=== PATIENT | male | born 1950 | race Caucasian/White ===

== ENCOUNTER 2020-06-28 20:50 | Inpatient (IN) | payer OTHER, MEDICARE, SELFPAY ==
[2020-06-28 20:51] VITALS: BP 148/80; PULSE 75; RESP 15; TEMP 36.4; O2SAT 95; BMI 30.7
--- NOTE | 2020-06-28 21:04 | EKG12_ITS ---
Test Reason : DYSRHYTHMIA Blood Pressure : / mmHG Vent. Rate : 072 BPM Atrial Rate : 072 BPM P-R Int : 296 ms QRS Dur : 110 ms QT Int : 438 ms P-R-T Axes : -17 -56 037 degrees QTc Int : 479 ms Atrial-paced rhythm with prolonged AV conduction Left axis deviation Low voltage QRS Inferior infarct , age undetermined Anterolateral infarct , age undetermined Abnormal ECG Confirmed by OSCAR CHUN, PETROS ([id number]), department editor JAKE LEYVA ([id number]) on 07/02/2020 8:41:45 AM Referred By: Confirmed By:PETROS MOORE MD
--- NOTE | 2020-06-28 21:05 | ED.VIS.GEN ---
History of Present Illness Chief Complaint: Cellulitis Informant: Patient Onset: Yesterday Context: Sudden Onset Timing: Continuous Quality: Redness left leg with lymphangitis Location: Left leg and foot Current Severity: Moderate Maximum Severity: Moderate Worsened by: Cat bite Relieved by: Nothing Associated Symptoms: Awoke diaphoretic Narrative: Patient is a 69-year-old male who was bit by his cat yesterday. He presents because of redness involving the entire left leg, left foot and red streaks to his groin. Patient denies documented fever. He does report diaphoresis. He does report feeling cold. He denies headache, visual, ocular auditory symptoms. He states he is not on prednisone and is on no immunosuppressive meds. He denies GI symptoms. He denies urologic symptoms. He states he was bit by his cat yesterday. Patient states his immunization and the cats immunizations are up-to-date. He reports no allergy to antibiotics. Prior similar symptoms: Yes Recent Illness/Hospitalization: No - Past Medical History (1) Chronic atrial fibrillation Status: Chronic (2) penitentiary current use of anticoagulant Status: Acute (3) Ischemic cardiomyopathy Status: Acute (4) AICD (automatic cardioverter/defibrillator) present Status: Acute (5) Essential hypertension Status: Acute (6) Hypothyroidism Status: Acute (7) Mixed hyperlipidemia Status: Acute Past Medical History - Allergies and Home Meds Allergies/Adverse Reactions: Allergies bee venom protein (honey bee) Allergy (Verified 06/28/20 20:55) Anaphylaxis perflutren [From Definity] Allergy (Verified 06/28/20 20:56) PT UNSURE OF REACTION Prior records reviewed: No - None available Past Medical History: - - Viewed patient's paperwork from home Surgical History: noncontributory Lives: Alone Smoking Status: Former smoker Alcohol: None Drugs: None Review of Systems General: Reports: Chills, Malaise, Sweats. Denies: Fever, Subjective, Weight loss Eyes: Denies: Visual changes - bilaterally, Blurred Vision - bilaterally ENT: Denies: Rhinorrhea, Sore throat Cardiovascular: Denies: Chest pain, Palpitations Respiratory: Denies: Dyspnea, Cough, Dyspnea on exertion Gastrointestinal: Denies: Abdominal pain, Nausea, Vomiting, Diarrhea, Melena, Hematochezia Genitourinary: Denies: Dysuria, Hematuria, Frequency Musculoskeletal: Reports: Swelling, Extremity Pain. Denies: Myalgias, Arthralgias, Neck pain, Back pain, -, - Skin: Reports: Rash, Wounds Neurological: Denies: Headache, Numbness Hematologic: Reports: Easy bruising. Denies: Easy bleeding Allergy: Denies: Uticaria Physical Exam Vital Signs/Narrative: Vital Signs Temp Pulse Resp BP Pulse Ox 06/28/20 20:51 97.5 F L 75 15 148/80 H 95 General: Well nourished, Well developed, Obese, No Acute Distress Head: Normocephalic, Atraumatic Eyes: Perrl, EOMI. Negative for: Pale conjunctiva, Scleral icterus ENT: No rhinorrhea, TM's clear Neck: Supple, Nontender. Negative for: No lymphadenopathy, No JVD Cardiovascular: Regular rate, No murmurs, Irregular Respiratory: No distress, CTA bilaterally, Chest nontender Abdomen: Soft, Nontender, Nondistended, Normal bowel sounds, - - There is no inguinal lymphadenopathy right or left. Rectal: Deferred Back: Nontender, Normal Inspection Extremities: Tenderness, Edema. Negative for: Nontender, No edema, - - There is a wound distal anterior mid left lower leg above the ankle. There is cellulitis of the entire leg and foot with lymphangitis streaks to the groin. Patient's foot is abnormally shaped and suggestive of Charcot's joint/foot disease Skin: Normal color, Rash, Trauma. Negative for: Cyanosis, Diaphoresis, Jaundice Neurological: Alert, Oriented x3, Cranial nerves II-XII grossly intact, Normal Strength, Normal Sensation, Normal Gait Psychological: Normal affect Diagnostic/Tx/Re-eval Laboratory Results 06/28/20 06/28/20 06/28/20 21:20 21:20 21:20 WBC 9.6 RBC 4.15 L Hgb 12.4 L Hct 38.1 L MCV 91.8 MCH 29.9 MCHC 32.5 RDW Std Deviation 49.0 H RDW Coeff of Ciera 14.6 Plt Count 126 L MPV 13.4 H Immature Gran % (Auto) 0.400 Neut % (Auto) 78.8 H Lymph % (Auto) 12.7 L Bullock % (Auto) 7.7 Eos % (Auto) 0.2 Baso % (Auto) 0.2 Absolute Neuts (auto) 7.5 Absolute Lymphs (auto) 1.22 Nucleated RBC % 0 PT 28.9 H INR 2.8 APTT 51.5 H Sodium 141 Potassium 3.7 Chloride 112 H Carbon Dioxide 25.0 Anion Gap 4 L BUN 27 H Creatinine 1.00 Estim Creat Clear Calc 84.39 Est GFR (MDRD) Af Amer 95 Est GFR (MDRD) Non-Af 79 BUN/Creatinine Ratio 27.1 H Glucose 90 Lactic Acid Calcium 9.0 Total Bilirubin 0.80 AST 17 ALT 32 Alkaline Phosphatase 48 Total Protein 6.9 Albumin 3.5 Globulin 3.4 Albumin/Globulin Ratio 1.0 06/28/20 21:20 WBC RBC Hgb Hct MCV MCH MCHC RDW Std Deviation RDW Coeff of Ciera Plt Count MPV Immature Gran % (Auto) Neut % (Auto) Lymph % (Auto) Bullock % (Auto) Eos % (Auto) Baso % (Auto) Absolute Neuts (auto) Absolute Lymphs (auto) Nucleated RBC % PT INR APTT Sodium Potassium Chloride Carbon Dioxide Anion Gap BUN Creatinine Estim Creat Clear Calc Est GFR (MDRD) Af Amer Est GFR (MDRD) Non-Af BUN/Creatinine Ratio Glucose Lactic Acid 1.5 Calcium Total Bilirubin AST ALT Alkaline Phosphatase Total Protein Albumin Globulin Albumin/Globulin Ratio Patient has no sirs criteria. However he has extensive cellulitis with lymphangitis. Will page the hospitalist for admission. - EKG Initial EKG Interpretation: - - Atrial paced rhythm with prolonged AV conduction. Ventricular rate 72. MA interval 296 ms. QRS duration 110 ms. QT duration 438 ms. [place] is to the left. - Medical Decision Making Patient has cellulitis of the left leg involving the foot with lymphangitis due to cat bite. Sepsis work-up was undertaken. Patient was informed that he would require admission the hospital. He states the last time this occurred he was hospitalized for 4 days. There is no crepitus or pain to palpation to suggest necrotizing fasciitis. ED Disposition - Plan for ED Patient: Disposition: Acute Care Hospital [facility] Diagnosis: Left leg cellulitis, Lymphangitis of lower extremity, Cat bite of left lower leg with infection
[2020-06-28] MEDS: 0.9% Normal Saline 1,000 ML 250 ML IV (21:23)
[2020-06-28 21:53] LABS: Absolute Lymphocyte Count 1.22 X10^3/uL (0.83-4.51); Absolute Neutrophil Count 7.5 X10^3/uL (2.0-7.7); Basophil# 0.02 X10^3/uL; Basophil% 0.2 % (0-1); Eosinophil# 0.02 X10^3/uL; Eosinophils% 0.2 % (0-5); Hematocrit 38.1 % (40-54); Hemoglobin 12.4 g/dL (13.0-16.5); Lymphocyte # 1.22 X10^3/ul (4.0); Lymphocyte % 12.7 % (19-41); Mean Corp Hgb Conc 32.5 g/dL (32-36); Mean Corpuscular Hgb 29.9 pg (27.0-32.0); Mean Corpuscular Volume 91.8 fL (80-94); Mean Platelet Vol. 13.4 fl (6.2-12.0); Monocyte# 0.74 X10^3/uL; Monocyte% 7.7 % (0-10); NRBC Flagged by Analyzer 0 % (0-5); Neutrophil # 7.53 X10^3/uL (2.7-7.7); Neutrophil % 78.8 % (47-70); Platelet Count 126 K/mm3 (150-450); RBC Distribution Width CV 14.6 % (11.6-14.6); Red Blood Count 4.15 M/mm3 (4.6-6.2); White Blood Count 9.6 K/mm3 (4.4-11.0)
[2020-06-28 21:59] LABS: AST(SGOT) 17 U/L (15-37); Alanine Aminotransfer ALT/SGPT 32 U/L (16-61); Albumin, Serum 3.5 g/dL (3.2-5.0); Alkaline Phosphatase 48 U/L (45-117); Anion Gap 4 (5-15); BUN 27 mg/dL (7-18); BUN/Creat Ratio 27.1 RATIO (10-20); Chloride 112 mmol/L (98-107); EST Glomerular Filtration Rate 79 mL/min (>60); Est Glom Filt Rate - Afr Amer 95 mL/min (>60); Estimated Creatinine Clearance 84.39 ml/min; Globulin 3.4 g/dL (2.2-4.2); Glucose 90 mg/dL (74-106); Lactic Acid 1.5 mmol/L (0.4-1.9); Potassium 3.7 mmol/L (3.5-5.1); Protein, Total 6.9 g/dL (6.4-8.2); Sodium Level 141 mmol/L (136-145)
[2020-06-28 22:09] VITALS: BP 129/71; PULSE 70; RESP 18; TEMP 36.4; O2SAT 94
[2020-06-28 22:09] LABS: International Normalized Ratio 2.8; Prothrombin Time (Protime)PT. 28.9 SECONDS (11.7-14.9)
[2020-06-28 22:10] LABS: Partial Thromboplast Time 51.5 Seconds (24.1-36.2)
[2020-06-28 22:29] VITALS: TEMP 36.8
--- NOTE | 2020-06-28 22:31 | HP.PCM_ITS ---
History of Present Illness Date of Admission: 06/28/20 Chief Complaint: cat bite The patient is a 69 year old M with a past medical history as outlined including hypertension, and diabetes. He was admitted through the ED on 06/28/2020 with a complaint of cat bite. He says his cat bit his left leg 2 days prior to admission. He subsequently noted that his leg started getting swollen, red and painful. He had associated increased sweating, but denied any fever, chills, nausea or vomiting, or discharge from his leg. He says this has happened in the past before, when his cat bit his leg. Review of systems was otherwise negative. On adnission in the ED, vitals showed Temp of 98F, with BP of 130/70, WV of 70 a nd RR of 17. CBB showed wbc of 9.6, hb of 12.4, platelets of 126 and BMP showed sodium of 141, potassium of 3.7 and Cr of 1. He is being admitted to be managed for cellulitis of the LLE due to cat bite. [] Past Medical History Past Medical History (Chronic Problems): Chronic Problems Chronic atrial fibrillation (Chronic) Allergies bee venom protein (honey bee) Allergy (Verified 06/28/20 20:55) Anaphylaxis perflutren [From Definity] Allergy (Verified 06/28/20 20:56) PT UNSURE OF REACTION Home Medications: Ambulatory Orders Medication Instructions Recorded Amiodarone HCl 200 mg PO DAILY 06/28/20 Atorvastatin Calcium 20 mg PO DAILY 06/28/20 Carvedilol 25 mg PO BID 06/28/20 Furosemide [Lasix] 40 mg PO QWEEK 06/28/20 Glimepiride 4 mg PO DAILY 06/28/20 Hydralazine HCl 25 mg PO BID 06/28/20 Levothyroxine [Synthroid] 50 mcg PO DAILY 06/28/20 Losartan Potassium 50 mg PO QHS 06/28/20 Metformin HCl 500 mg PO BID 06/28/20 Potassium Chloride [K-Dur] 10 meq PO DAILY 06/28/20 Warfarin [Coumadin ([facility])] 4 mg PO DAILY 06/28/20 Surgical History: noncontributory Psychiatric History: No pertinent psych hx Lives: Alone Smoking Status: Former smoker Alcohol: None Drugs: None - *Family History Maternal History Items: No pertinent history Paternal History Items: No pertinent history Review of Systems Constitutional: Denies: Chills, Fever, Malaise, Weakness, Weight Change, Fatigue Eyes: Denies: Blurred vision HEENT: Denies: Head Aches, Sinus Congestion, Sinus Drainage Cardiovascular: Denies: Chest Pain, Chest Pressure, Chest Tightness, Light Headedness, Palpitations Respiratory: Denies: Cough, Shortness of breath at rest, Shortness of breath upon exertion, Sputum production Gastrointestinal: Denies: Abdominal Pain, Nausea, Vomiting Genitourinary: Denies: Dysuria Musculoskeletal: Reports: Leg Pain. Denies: Joint Tenderness Skin: Reports: Skin Changes, Wounds Neurological: Denies: Numbness, Tingling, Focal weakness Psychiatric: Denies: Anxiety, Depression, Homicidal Ideations, Suicidal Ideations Hematologic/ Lymphatic: Denies: Easy Bruising, Easy Bleeding VTE Information - Inpt Only VTE Present on Admission: No VTE Pharm Prophylaxis ordered?: Yes Patient Problems: Active and Suspected Problems Left leg cellulitis (Acute) Lymphangitis of lower extremity (Acute) Cat bite of left lower leg with infection (Acute) - Physical Exam Vitals/I&O's: Vital Signs Temp Pulse Resp BP Pulse Ox 98.3 F 70 18 129/71 H 94 06/28/20 22:29 06/28/20 22:09 06/28/20 22:09 06/28/20 22:09 06/28/20 22:09 Oxygen Delivery Method Room Air Weight: 252 lb 13.923 oz Body Mass Index (BMI) 30.7 Intake and Output for Last 24 Hours 06/26/20 06/27/20 06/28/20 23:59 23:59 23:59 Intake Total 112 / 112 Balance 112 / 112 General: Alert, Oriented x3, Cooperative, No apparent distress HEENT: Atraumatic, PERRLA, EOMI, Normocephalic Oral: Dry Mucosa Neck: Supple, No JVD, Negative Carotid Bruits Lungs: Clear to auscultation, Normal air movement, No rhonchi, No wheeze Cardiovascular: Regular rate, Regular Rhythm, Normal S1, Normal S2, No murmurs Abdomen: Bowel Sounds Present, Soft, Non Tender, Non-Distended, No Hepato- splenomegaly Extremities: No clubbing, No cyanosis, Capillary Refill Less than 3 Seconds, Edema Skin: - - redness and swelling extending from left ankle to left thigh, with red streaks up thigh; has few blisters on left cramer, with healing cat bite area on left cramer. tender to touch Musculoskeletal: Tenderness, - - as under skin. Lymphatic: No Cervical, Supraclavicular, or Inguinal Adenopathy Neurological: Cranial nerves II-XII grossly intact, Neuro grossly intact, Motor Exam 5/5 strength throughout Psych/Mental Status: Normal Affect, Appropriate, Alert and oriented to time, place, person, mood and affect Laboratory Results 06/28/20 21:20: WBC 9.6, RBC 4.15 L, Hgb 12.4 L, Hct 38.1 L, MCV 91.8, MCH 29.9, MCHC 32.5, RDW Std Deviation 49.0 H, RDW Coeff of Ciera 14.6, Plt Count 126 L, MPV 13.4 H, Immature Gran % (Auto) 0.400, Neut % (Auto) 78.8 H, Lymph % (Auto) 12.7 L, [place] % (Auto) 7.7, Eos % (Auto) 0.2, Baso % (Auto) 0.2, Absolute Neuts (auto) 7.5, Absolute Lymphs (auto) 1.22, Nucleated RBC % 0 06/28/20 21:20: PT 28.9 H, INR 2.8, APTT 51.5 H 06/28/20 21:20: Sodium 141, Potassium 3.7, Chloride 112 H, Carbon Dioxide 25.0, Anion Gap 4 L, BUN 27 H, Creatinine 1.00, Estim Creat Clear Calc 84.39, Est GFR (MDRD) Af Amer 95, Est GFR (MDRD) Non-Af 79, BUN/Creatinine Ratio 27.1 H, Glucose 90, Calcium 9.0, Total Bilirubin 0.80, AST 17, ALT 32, Alkaline Phosphatase 48, Total Protein 6.9, Albumin 3.5, Globulin 3.4, Albumin/Globulin Ratio 1.0 06/28/20 21:20: Lactic Acid 1.5 Current Medications Sodium Chloride () 1,000 mls @ 250 mls/hr IV .Q4H HAL Last Admin: 06/28/20 21:23 Dose: 250 mls/hr Documented by: Assessment/Plan All 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 Afib: on amiodarone and carvedilol. On coumadin. INr is 2.8 3. Hypertension: on hydralazine, loasrtan and carvedilol 4. Type 2 diabetes mellitus: on metformin and glimepiride. ISS. Accuchecks ACHS DVT prophylaxis: on coumadin, Code status: full code * Patient counseled extensively about different types of CODE STATUS including full code, DNR CCA and DNR CCA. Patient elects to be (). Total [id number] time () minutes. Inpatient E&M: 44297 Init Hosp L3 Procedures: 69368 Advncd Care Plan 30 Min
[2020-06-28 22:44] VITALS: BP 130/70; PULSE 70; RESP 17; TEMP 36.6; O2SAT 95
[2020-06-28 23:36] VITALS: BMI 30.7
[2020-06-29] VITALS (8 sets, daily range): BP systolic 106–147; BP diastolic 58–89; PULSE 67–71; RESP 18; TEMP 36.4–37.1; O2SAT 97–98
[2020-06-29] MEDS: Amiodarone 200 MG Tablet PO (00:32)
[2020-06-29] MEDS: hydrALAZINE 25 MG Tablet PO ×3 (00:33→21:34)
[2020-06-29] MEDS: Losartan Potassium 50 MG Tablet PO ×2 (00:34→21:35)
[2020-06-29] MEDS: Carvedilol 25 MG Tablet PO ×3 (00:35→21:35)
[2020-06-29] MEDS: metFORMIN HCl 500 MG Tablet PO ×3 (00:35→17:55)
[2020-06-29] MEDS: Levothyroxine 50 MCG Tablet PO (06:23)
[2020-06-29 06:52] LABS: Absolute Lymphocyte Count 0.77 X10^3/uL (0.83-4.51); Absolute Neutrophil Count 5.7 X10^3/uL (2.0-7.7); Basophil# 0.02 X10^3/uL; Basophil% 0.3 % (0-1); Eosinophil# 0.04 X10^3/uL; Eosinophils% 0.6 % (0-5); Hematocrit 35.6 % (40-54); Hemoglobin 11.2 g/dL (13.0-16.5); Lymphocyte # 0.77 X10^3/ul (4.0); Lymphocyte % 10.7 % (19-41); Mean Corp Hgb Conc 31.5 g/dL (32-36); Mean Corpuscular Hgb 29.5 pg (27.0-32.0); Mean Corpuscular Volume 93.7 fL (80-94); Mean Platelet Vol. 13.3 fl (6.2-12.0); Monocyte# 0.64 X10^3/uL; Monocyte% 8.9 % (0-10); NRBC Flagged by Analyzer 0 % (0-5); Neutrophil # 5.72 X10^3/uL (2.7-7.7); Neutrophil % 79.2 % (47-70); Platelet Count 104 K/mm3 (150-450); RBC Distribution Width CV 14.9 % (11.6-14.6); RBC Distribution Width SD 50.5 fl (35.1-43.9); White Blood Count 7.2 K/mm3 (4.4-11.0)
[2020-06-29 07:04] LABS: Anion Gap 4 (5-15); BUN 19 mg/dL (7-18); BUN/Creat Ratio 27.4 RATIO (10-20); Calcium,Total 8.2 mg/dL (8.5-10.1); Chloride 109 mmol/L (98-107); Creatinine, Serum 0.69 mg/dL (0.70-1.30); EST Glomerular Filtration Rate 120 mL/min (>60); Est Glom Filt Rate - Afr Amer 145 mL/min (>60); Estimated Creatinine Clearance 84.39 ml/min; Glucose 101 mg/dL (74-106); Potassium 3.7 mmol/L (3.5-5.1); Sodium Level 139 mmol/L (136-145)
[2020-06-29 07:11] LABS: Bedside Glucose 121 mg/dL (70-110)
[2020-06-29] MEDS: Glimepiride 4 MG Tablet PO (07:35)
--- NOTE | 2020-06-29 09:41 | PN_ITS ---
Patient Problems: Active and Suspected Problems Left leg cellulitis (Acute) Lymphangitis of lower extremity (Acute) Cat bite of left lower leg with infection (Acute) Reason for Visit: Follow-up for left lower extremity cellulitis after cat bite with lymphangitis. Objective: Patient had cat bite about about 3 days ago. Redness, inflammation and blotching spread to left leg up to inguinal region. No fever or chills. Patient has history of coronary artery status post bypass with saphenous vein graft taken off from left leg. Physical exam General: Alert, Oriented x3, Cooperative HEENT: Atraumatic, PERRLA, EOMI, Normocephalic Oral: No Gingival or Mucosal Lesions/ Ulcerations Neck: Supple, No JVD, Negative Carotid Bruits Lungs: Air entry equal in bilateral lung bases. No crepitation/rhonchi Cardiovascular: Regular rate, Regular Rhythm, Normal S1, Normal S2, No murmurs Abdomen: Bowel Sounds Present, Soft, Non Tender, Non-Distended : No renal angle tenderness. No suprapubic tenderness. Extremities: No edema, Capillary Refill Less than 3 Seconds Skin: Erythema, mild tenderness and swelling of left lower leg and lymphangitic erythema/spread up to left inguinal lymph node. Left inguinal node swollen but not tender, lymphadenopathy Musculoskeletal: No Tenderness to Palpation of Joints or Extremities Neurological: Cranial nerves II-XII grossly intact, Deep Tendon Reflexes 2+/4 and Symmetrical, Neuro grossly intact Psych/Mental Status: Normal Affect, Appropriate. Vitals/I&O's: Vital Signs Temp Pulse Resp BP Pulse Ox 98.6 F 67 18 134/58 H 98 06/29/20 06:00 06/29/20 07:36 06/29/20 06:00 06/29/20 06:00 06/29/20 06:00 Oxygen Delivery Method Room Air Weight: 252 lb 8 oz Body Mass Index (BMI) 30.7 Intake and Output for Last 24 Hours 06/27/20 06/28/20 06/29/20 23:59 23:59 23:59 Intake Total 112 / 112 1108.67 / 1108.67 Balance 112 / 112 1108.67 / 1108.67 Laboratory Results 06/28/20 21:20: WBC 9.6, RBC 4.15 L, Hgb 12.4 L, Hct 38.1 L, MCV 91.8, MCH 29.9, MCHC 32.5, RDW Std Deviation 49.0 H, RDW Coeff of Ciera 14.6, Plt Count 126 L, MPV 13.4 H, Immature Gran % (Auto) 0.400, Neut % (Auto) 78.8 H, Lymph % (Auto) 12.7 L, [place] % (Auto) 7.7, Eos % (Auto) 0.2, Baso % (Auto) 0.2, Absolute Neuts (auto) 7.5, Absolute Lymphs (auto) 1.22, Nucleated RBC % 0 06/28/20 21:20: PT 28.9 H, INR 2.8, APTT 51.5 H 06/28/20 21:20: Sodium 141, Potassium 3.7, Chloride 112 H, Carbon Dioxide 25.0, Anion Gap 4 L, BUN 27 H, Creatinine 1.00, Estim Creat Clear Calc 84.39, Est GFR (MDRD) Af Amer 95, Est GFR (MDRD) Non-Af 79, BUN/Creatinine Ratio 27.1 H, Glucose 90, Calcium 9.0, Total Bilirubin 0.80, AST 17, ALT 32, Alkaline Phosphatase 48, Total Protein 6.9, Albumin 3.5, Globulin 3.4, Albumin/Globulin Ratio 1.0 06/28/20 21:20: Lactic Acid 1.5 06/29/20 06:20: WBC 7.2, RBC 3.80 L, Hgb 11.2 L, Hct 35.6 L, MCV 93.7, MCH 29.5, MCHC 31.5 L, RDW Std Deviation 50.5 H, RDW Coeff of Ciera 14.9 H, Plt Count 104 L, MPV 13.3 H, Immature Gran % (Auto) 0.300, Neut % (Auto) 79.2 H, Lymph % (Auto) 10.7 L, [place] % (Auto) 8.9, Eos % (Auto) 0.6, Baso % (Auto) 0.3, Absolute Neuts (auto) 5.7, Absolute Lymphs (auto) 0.77 L, Nucleated RBC % 0 06/29/20 06:20: Sodium 139, Potassium 3.7, Chloride 109 H, Carbon Dioxide 26.0, Anion Gap 4 L, BUN 19 H, Creatinine 0.69 L, Estim Creat Clear Calc 84.39, Est GFR (MDRD) Af Amer 145, Est GFR (MDRD) Non-Af 120, BUN/Creatinine Ratio 27.4 H, Glucose 101, Calcium 8.2 L 06/29/20 07:02: POC Glucose 121 H Current Medications Acetaminophen (Tylenol) 650 mg PO Q6H PRN PRN PRN Reason: Pain Score 1-10/Temp > 100.7 F Am[facility] Last Admin: 06/29/20 00:32 Dose: 200 mg Documented by: Atorvastatin Calcium (Lipitor) 20 mg PO DAILY@2200 [facility] Carvedilol (Coreg) 25 mg PO BID [facility] Last Admin: 06/29/20 07:36 Dose: 25 mg Documented by: Dextrose (D50w Syringe) 0 gm IV X1 PRN; Protocol PRN Reason: Hypoglycemia Furosemide (Lasix) 40 mg PO QWEEK [facility] Glimepiride (Amaryl) [facility] Last Admin: 06/29/20 07:35 Dose: 4 mg Documented by: Glucagon () 1 mg IM .X1 PRN PRN Reason: Hypoglycemia Hydralazine HCl (Apresoline) 25 mg PO BID [facility] Last Admin: 06/29/20 07:36 Dose: 25 mg Documented by: Ampicillin Sodium/Sulbactam (Sodium 3 gm/ Sodium Chloride) 112 mls @ 150 mls/hr IV Q6 [facility] Last Infusion: 06/29/20 07:29 Dose: Infused Documented by: Sodium Chloride () 250 mls @ 15 mls/hr IV .[id number] PRN PRN Reason: Saline Flush Sodium Chloride () 250 mls @ 15 mls/hr IV .[id number] PRN PRN Reason: Additional IVPB Infusion Insulin Human Lispro (Humalog Kwikpen (Bkc)) 0 unit SC ACHS [facility]; Protocol Last Admin: 06/29/20 07:03 Dose: Not Given Documented by: Levothyroxine Sodium (Synthroid) 50 mcg PO DAILY@0600 [facility] Last Admin: 06/29/20 06:23 Dose: 50 mcg Documented by: Losartan Potassium (Cozaar) 50 mg PO QHS [facility] Last Admin: 06/29/20 00:34 Dose: 50 mg Documented by: Metformin HCl (Glucophage) [facility] Last Admin: 06/29/20 07:35 Dose: 500 mg Documented by: Nitroglycerin (Nitrostat) 0.4 mg SUBLINGUAL Q5M PRN PRN Reason: CARDIAC/CHEST PAIN Ondansetron HCl (Zofran) 4 mg IV Q8H PRN PRN PRN Reason: NAUSEA/VOMITING Oxycodone HCl (Oxyir) 10 mg PO Q4H PRN PRN PRN Reason: Pain Score 4-10/10 Potassium Chloride (K-Dur) 10 meq PO DAILY [facility] Last Admin: 06/29/20 07:36 Dose: 10 meq Documented by: Sodium Chloride () 10 - 40 ml IV UD PRN PRN Reason: SALINE FLUSH Warfarin Sodium (Coumadin (Pbkc)) 4 mg PO DAILY@1700 [facility] Last Admin: 06/29/20 00:34 Dose: 4 mg Documented by: STROKE Vital Signs/Narrative: Vital Signs Temp Pulse Resp BP Pulse Ox 06/29/20 07:36 67 06/29/20 06:00 98.6 F 67 18 134/58 H 98 Medical Necessity - Tobacco Use Smoking Status: Former smoker Assessment/Plan 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 Patient does not meet sepsis criteria or leukocytosis. On IV Unasyn. Supportive management for pain. * 2. Chronic Afib: on amiodarone and carvedilol. On coumadin. INr is 2.8 3. Hypertension: on hydralazine, losartan and carvedilol. Blood pressure is controlled 4. Type 2 diabetes mellitus: on metformin and glimepiride. glucose is 121 in Accu-Chek and BMP and glucose 101. DVT prophylaxis: on coumadin Code status: full code Inpatient E&M: 91616 Subs Hosp L2
[2020-06-29 09:46] LABS: Bacteria 0 SEEN /hpf (None Seen); Mucous, Urine 0 SEEN /hpf (<or=2+); Red Blood Cells-Urine 0 SEEN /hpf (0-5); Squamous Epithelial Cells - UA 0 SEEN /hpf (0-5); White Blood Cells 0 SEEN /hpf (0-5)
[2020-06-29 09:49] LABS: Color, Urine Yellow (Yellow); Glucose, Dipstick Normal (Normal); Ketone-Dipstick 5 mg/dl (Negative); Leukocyte Esterase-Dipstick Negative /ul (Negative); Nitrite-Dipstick Negative (Negative); Occult Blood-Urine Negative /ul (Negative); Protein-Dipstick Negative (Negative); Urine Bilirubin Dipstick Negative (Negative); Urine Clarity Clear (Clear); Urine Urobilinogen 8 mg/dl (Normal)
--- NOTE | 2020-06-29 11:18 | CASEMGMT ---
ENRIKE UREÑA assessment: Face to Face with patient for initial transition planning/care coordination assessment. ENRIKE UREÑA introduced self and role at [facility]. Care providers, pharmacy, and demographics verified. Presentation: Pt presents with LLE cellulitis and red streaking that started wednesday after cat bite Admitting dx: Cellulitis PCP: Krystal Specialists: [facility](unsure of name); Dominique, endocrinology Preferred Pharmacy: [facility] Insurance: [employer] Prescription Benefit: [employer] Living Will/HPOA: Pt states does not have LW/HPOA and declines AD info at this time. LNOK: Kiley Hernandez, Living Arrangements: Pt states lives with in split level home and states no concerns at home at this time. Pt states is independent with ADL's. Transportation: Pt states drives self and states no transportation concerns at this time. DME/HHC: Pt states has a walker, glucometer, and INR meter. Pt states no need for any further DME at this time. Pt states no hx of HHC or SNF in the past. Pt states no concerns with going home at time of discharge. Pt states is retired. Pt states does not smoke cigarettes or drink ETOH. Pt states no further concerns/needs at this time. CM to follow for any further discharge planning/needs. Advised pt to ask for CM if any further questions/concerns/needs arise, voices understanding. Pt Goal: Home Plan: [place] ENRIKE UREÑA
[2020-06-29] MEDS: Insulin Lispro 100 UNIT/ML INSULN.PEN SC (11:27)
[2020-06-29 12:26] LABS: Bedside Glucose 160 mg/dL (70-110)
[2020-06-29 16:26] LABS: Bedside Glucose 106 mg/dL (70-110)
[2020-06-29] MEDS: Atorvastatin Calcium 20 MG Tablet PO (21:35)
[2020-06-29 21:46] LABS: Bedside Glucose 93 mg/dL (70-110)
[2020-06-30 04:10] VITALS: BP 125/71; PULSE 69; RESP 16; TEMP 36.6; O2SAT 97
[2020-06-30] MEDS: Levothyroxine 50 MCG Tablet PO (05:31)
[2020-06-30] MEDS: 0.9% Saline Lock 10 ML Syringe IV ×3 (05:34→21:18)
[2020-06-30 06:26] LABS: International Normalized Ratio 2.4
[2020-06-30 06:55] LABS: Bedside Glucose 104 mg/dL (70-110)
[2020-06-30] MEDS: Glimepiride 4 MG Tablet PO (09:33)
[2020-06-30] MEDS: metFORMIN HCl 500 MG Tablet PO ×2 (09:34→17:40)
[2020-06-30] MEDS: Carvedilol 25 MG Tablet PO ×2 (09:34→21:17)
[2020-06-30 09:35] VITALS: PULSE 80
[2020-06-30] MEDS: hydrALAZINE 25 MG Tablet PO ×2 (09:35→21:17)
[2020-06-30] MEDS: Amiodarone 200 MG Tablet PO (09:35)
[2020-06-30 09:46] VITALS: BP 134/75; PULSE 69; RESP 18; TEMP 36.8; O2SAT 97
[2020-06-30 11:56] LABS: Bedside Glucose 199 mg/dL (70-110)
--- NOTE | 2020-06-30 13:09 | PCM.PN.HOSP ---
Patient Problems: Active and Suspected Problems Left leg cellulitis (Acute) Lymphangitis of lower extremity (Acute) Cat bite of left lower leg with infection (Acute) Reason for Visit: Follow-up left leg cellulitis with lymphangitis. Objective: Patient did not had fever or chills. Extension of cellulitis is improved over left thigh but left leg is still edematous with a small subcutaneous collection on the left lateral aspect. Physical exam General: Alert, Oriented x3, Cooperative HEENT: Atraumatic, PERRLA, EOMI, Normocephalic Oral: No Gingival or Mucosal Lesions/ Ulcerations Neck: Supple, No JVD, Negative Carotid Bruits Lungs: Air entry equal in bilateral lung bases. No crepitation/rhonchi Cardiovascular: Regular rate, Regular Rhythm, Normal S1, Normal S2, No murmurs Abdomen: Bowel Sounds Present, Soft, Non Tender, Non-Distended : No renal angle tenderness. No suprapubic tenderness. Extremities: No edema, Capillary Refill Less than 3 Seconds Skin: Erythema, mild tenderness and swelling of left lower leg. Mild subcutaneous collection, pitting edema over lateral aspect of left leg. Left thigh lymphangitic redness/streak has resolved. Left inguinal node swollen but not tender, lymphadenopathy Musculoskeletal: No Tenderness to Palpation of Joints or Extremities Neurological: Cranial nerves II-XII grossly intact, Deep Tendon Reflexes 2+/4 and Symmetrical, Neuro grossly intact Psych/Mental Status: Normal Affect, Appropriate. Vitals/I&O's: Vital Signs Temp Pulse Resp BP Pulse Ox 98.3 F 69 18 134/75 H 97 06/30/20 09:46 06/30/20 09:46 06/30/20 09:46 06/30/20 09:46 06/30/20 09:46 Oxygen Delivery Method Room Air Weight: 252 lb 8 oz Body Mass Index (BMI) 30.7 Intake and Output for Last 24 Hours 06/28/20 06/29/20 06/30/20 23:59 23:59 23:59 Intake Total 112 / 112 1692.67 / 2042.67 874.25 / 874.25 Balance 112 / 112 1692.67 / 2.67 874.25 / 874.25 Laboratory Results 06/29/20 16:18: POC Glucose 106 06/29/20 21:31: POC Glucose 93 06/30/20 05:15: PT 26.0 H, INR 2.4 06/30/20 06:48: POC Glucose 104 06/30/20 11:48: POC Glucose 199 H Current Medications Acetaminophen (Tylenol) 650 mg PO Q6H PRN PRN PRN Reason: Pain Score 1-10/Temp > 100.7 F [facility] [place] [facility] Admin: 06/30/20 09:35 Dose: 200 mg Documented by: Atorvastatin Calcium (Lipitor) 20 mg PO DAILY@2200 [facility] [place] Last Admin: 06/29/20 21:35 Dose: 20 mg Documented by: Carvedilol (Coreg) 25 mg PO BID [facility] [place] Last Admin: 06/30/20 09:34 Dose: 25 mg Documented by: Dextrose (D50w Syringe) 0 gm IV X1 PRN; Protocol PRN Reason: Hypoglycemia Furosemide (Lasix) 40 mg IV X1 ONE Stop: 06/30/20 13:00 Glimepiride (Amaryl) [facility] [place] [facility] Admin: 06/30/20 09:33 Dose: 4 mg Documented by: Glucagon () 1 mg IM .X1 PRN PRN Reason: Hypoglycemia Hydralazine HCl (Apresoline) 25 mg PO BID [facility] [place] Last Admin: 06/30/20 09:35 Dose: 25 mg Documented by: Ampicillin Sodium/Sulbactam (Sodium 3 gm/ Sodium Chloride) 112 mls @ 150 mls/hr IV Q6 [facility] [place] Last Admin: 06/30/20 12:51 Dose: 100 mls/hr Documented by: Sodium Chloride () 250 mls @ 15 mls/hr IV .[id number] PRN PRN Reason: Saline Flush Last Infusion: 06/30/20 05:32 Dose: 0 mls/hr Documented by: Sodium Chloride () 250 mls @ 15 mls/hr IV .[id number] PRN PRN Reason: Additional IVPB Infusion Insulin Human Lispro (Humalog Kwikpen (Bkc)) 0 unit SC ACHS [facility] [place]; Protocol Last Admin: 06/30/20 07:37 Dose: Not Given Documented by: Levothyroxine Sodium (Synthroid) 50 mcg PO DAILY@0600 [facility] [place] Last Admin: 06/30/20 05:31 Dose: 50 mcg Documented by: Losartan Potassium (Cozaar) 50 mg PO QHS [facility] [place] Last Admin: 06/29/20 21:35 Dose: 50 mg Documented by: Metformin HCl (Glucophage) 500 mg PO BIDCM [facility] [place] Last Admin: 06/30/20 09:34 Dose: 500 mg Documented by: Nitroglycerin (Nitrostat) 0.4 mg SUBLINGUAL Q5M PRN PRN Reason: CARDIAC/CHEST PAIN Ondansetron HCl (Zofran) 4 mg IV Q8H PRN PRN PRN Reason: NAUSEA/VOMITING Oxycodone HCl (Oxyir) 10 mg PO Q4H PRN PRN PRN Reason: Pain Score 4-10/10 Potassium Chloride (K-Dur) 10 meq PO DAILY [facility] [place] Last Admin: 06/30/20 09:35 Dose: 10 meq Documented by: Sodium Chloride () 10 - 40 ml IV UD PRN PRN Reason: SALINE FLUSH Last Admin: 06/30/20 05:34 Dose: 10 ml Documented by: Warfarin Sodium (Coumadin (Pbkc)) 4 mg PO DAILY@1700 [facility] [place] Last Admin: 06/29/20 17:54 Dose: 4 mg Documented by: STROKE Vital Signs/Narrative: Vital Signs Temp Pulse Resp BP Pulse Ox 06/30/20 09:46 98.3 F 69 18 134/75 H 97 06/30/20 09:35 80 Medical Necessity - Tobacco Use Smoking Status: Former smoker Assessment/Plan All Active Problems jail current use of anticoagulant (Acute) Ischemic cardiomyopathy (Acute) AICD (automatic cardioverter/defibrillator) present (Acute) Essential hypertension (Acute) Hypothyroidism (Acute) Mixed hyperlipidemia (Acute) Left leg cellulitis (Acute) Lymphangitis of lower extremity (Acute) Cat bite of left lower leg with infection (Acute) 69 y/o admitted with a complaint of redness and swelling of left leg due to cat bite along with lymphangitis consistent with left lower extremity cellulitis 1.Left lower extremity cellulitis and lymphangitis due to cat bite most likely strep: Patient is being admitted on MedSurg. Patient does not meet sepsis criteria or leukocytosis. On IV Unasyn. Supportive management for pain. 06/30: Subcutaneous collection of fluid on the left lateral aspect. I feel, does not need incision and drainage but most likely will reabsorb with conservative antibiotic treatment. CBC and BMP ordered for tomorrow a.m. 2.Chronic heart failure: Exact severity and type of heart failure unclear but patient has coronary artery disease status post bypass with saphenous vein graft taken from left leg. Patient also takes Lasix 40 mg weekly for history of heart failure but tries to not to take in summer to avoid dehydration and is a avid golfer. Lasix 1 dose 40 mg IV ordered. Reevaluate tomorrow a.m. if patient still has swelling, Lasix as needed. 3. Chronic Afib: on amiodarone and carvedilol. On coumadin. INr is 2.8 4.. Hypertension: on hydralazine, losartan and carvedilol. Blood pressure is controlled 4. Type 2 diabetes mellitus: on metformin and glimepiride. glucose is 121 in Accu-Chek and BMP and glucose 101. DVT prophylaxis: on coumadin. INR supratherapeutic Code status: full code Anticipate discharge tomorrow a.m. if left leg swelling has improved. Inpatient E&M: 74365 Subs Hosp L2
[2020-06-30] MEDS: Insulin Lispro 100 UNIT/ML INSULN.PEN SC (13:20)
[2020-06-30] MEDS: Furosemide 40 MG/4 ML Vial IV (13:21)
[2020-06-30 13:54] VITALS: BP 156/84; PULSE 71; PULSE 77; RESP 16; TEMP 37.1; O2SAT 100
[2020-06-30 16:26] LABS: Bedside Glucose 82 mg/dL (70-110)
--- NOTE | 2020-06-30 18:03 | NURSING ---
@ 1700 dose time, 4 mg missing from med drawer-Rx notified
[2020-06-30 21:17] VITALS: BP 128/69; PULSE 72; RESP 16; TEMP 36.6; O2SAT 97
[2020-06-30] MEDS: Losartan Potassium 50 MG Tablet PO (21:17)
[2020-06-30] MEDS: Atorvastatin Calcium 20 MG Tablet PO (21:17)
[2020-06-30 21:26] LABS: Bedside Glucose 89 mg/dL (70-110)
[2020-07-01 04:45] VITALS: BP 108/58; PULSE 73; RESP 16; TEMP 36.6; O2SAT 98
[2020-07-01] MEDS: 0.9% Saline Lock 10 ML Syringe IV (05:33)
[2020-07-01] MEDS: Furosemide 40 MG/4 ML Vial IV (05:34)
[2020-07-01] MEDS: Levothyroxine 50 MCG Tablet PO (05:40)
[2020-07-01 06:32] LABS: Absolute Lymphocyte Count 1.23 X10^3/uL (0.83-4.51); Basophil# 0.02 X10^3/uL; Basophil% 0.3 % (0-1); Eosinophil# 0.08 X10^3/uL; Eosinophils% 1.2 % (0-5); Hematocrit 41.4 % (40-54); Hemoglobin 13.3 g/dL (13.0-16.5); Lymphocyte # 1.23 X10^3/ul (4.0); Lymphocyte % 17.9 % (19-41); Mean Corp Hgb Conc 32.1 g/dL (32-36); Mean Corpuscular Hgb 29.5 pg (27.0-32.0); Mean Corpuscular Volume 91.8 fL (80-94); Mean Platelet Vol. 12.6 fl (6.2-12.0); Monocyte% 7.3 % (0-10); NRBC Flagged by Analyzer 0 % (0-5); Neutrophil # 5.01 X10^3/uL (2.7-7.7); Neutrophil % 72.9 % (47-70); Platelet Count 171 K/mm3 (150-450); RBC Distribution Width CV 14.5 % (11.6-14.6); Red Blood Count 4.51 M/mm3 (4.6-6.2); White Blood Count 6.9 K/mm3 (4.4-11.0)
[2020-07-01] MEDS: Insulin Lispro 100 UNIT/ML INSULN.PEN SC (06:40)
[2020-07-01 06:47] LABS: International Normalized Ratio 2.2
[2020-07-01 06:50] LABS: Bedside Glucose 154 mg/dL (70-110)
[2020-07-01 06:55] LABS: Anion Gap 6 (5-15); BUN 18 mg/dL (7-18); BUN/Creat Ratio 22.1 RATIO (10-20); Chloride 107 mmol/L (98-107); Creatinine, Serum 0.82 mg/dL (0.70-1.30); EST Glomerular Filtration Rate 99 mL/min (>60); Est Glom Filt Rate - Afr Amer 120 mL/min (>60); Estimated Creatinine Clearance 102.91 ml/min; Glucose 133 mg/dL (74-106); Potassium 3.9 mmol/L (3.5-5.1); Sodium Level 141 mmol/L (136-145)
--- NOTE | 2020-07-01 08:00 | NURSING ---
Was asked to see patient for redness to the left leg d/t cat bite. pt is currently sitting up in the chair eating breakfast. quickly assessed the left leg. the redness is much improved according to the skin markings. pt has not redness to the left thigh at this time. pt states he had been bitten to the left medial lower cramer. small scabbed laceration noted. no fluctuance noted. patient states there is minimal discomfort, just some burning and irritation when anything rubs on the leg. pt states he does not want to try an [place] wrap at this time. pt states even just the sock bothers me. there is discoloration from the knee to ankle. pt states some is chronic. mild edema noted. pt feel has improved greatly. no need for wound care at this time. will monitor.
--- NOTE | 2020-07-01 08:30 | DCINST_ITS ---
- Discharge Diagnoses Current Active Problems: Current Active and Chronic Problems Left leg cellulitis (Acute) Lymphangitis of lower extremity (Acute) Cat bite of left lower leg with infection (Acute) You will use the following diet at home:: Calorie/Carbohydrate Controlled (specify 1200, 1400, etc) - 2000 tabatha., Cardiac Your food should be the consistency of: Regular Discharge Activity: Return to Normal Activity Weight Bearing Status: Weight bearing as tolerated Call your doctor if you observe: Fever of 101 or Higher, Shortness of breath, Dizziness, Fainting spells, Chest pain, Increased palpitations (irregular heartbeat), Uncontrolled pain Allergies/Adverse Reactions: Allergies bee venom protein (honey bee) Allergy (Verified 06/28/20 20:55) Anaphylaxis perflutren [From Definity] Allergy (Verified 06/28/20 20:56) PT UNSURE OF REACTION Medications to take at Discharge Amiodarone HCl 200 mg PO DAILY 06/28/20 Atorvastatin Calcium 20 mg PO DAILY 06/28/20 Carvedilol 25 mg PO BID 06/28/20 Furosemide [Lasix] 40 mg PO TU 06/28/20 Glimepiride 4 mg PO DAILY 06/28/20 Hydralazine HCl 25 mg PO BID 06/28/20 Levothyroxine [Synthroid] 50 mcg PO DAILY 06/28/20 Losartan Potassium 50 mg PO QHS 06/28/20 Metformin HCl 500 mg PO BID 06/28/20 Potassium Chloride [K-Dur] 10 meq PO DAILY 06/28/20 Warfarin [Coumadin] 4 mg PO DAILY 06/28/20 Amox/Clavulanate Tablet [Augmentin Tablet] 875 mg PO Q12H #10 tab 07/01/20 The following prescriptions were given: Amox/Clavulanate Tablet [Augmentin Tablet] 875 mg PO Q12H #10 tab Transmission Status: [id number] Primary Care Physician: Alfredito Rice MD [Primary Care Provider] - Please follow up with your Primary Care Physician in: 1 week. Test Results: Test results from this visit will be discussed in further detail at your follow- up appointment, if applicable.
[2020-07-01 08:36] VITALS: PULSE 70
[2020-07-01] MEDS: hydrALAZINE 25 MG Tablet PO (08:36)
[2020-07-01] MEDS: Glimepiride 4 MG Tablet PO (08:36)
[2020-07-01] MEDS: Amiodarone 200 MG Tablet PO (08:36)
[2020-07-01] MEDS: Carvedilol 25 MG Tablet PO (08:36)
[2020-07-01] MEDS: metFORMIN HCl 500 MG Tablet PO (08:38)
[2020-07-01 08:40] VITALS: BP 140/85; PULSE 70; RESP 18; TEMP 36.8; O2SAT 98
--- NOTE | 2020-07-01 11:02 | PCM.DC.SUM ---
Discharge Date and Diagnosis Date of Admission: 06/28/20 Date of Discharge: 07/01/20 - Primary Discharge Diagnosis Acute Problems: Acute left lower extremity cellulitis. 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 Swelling and erythema of the left lower leg improved. He has no fever or chills. His vital signs are stable. The patient is a 69 year old M presented to the emergency room because of left leg increasing redness and swelling due to cat bite and he was found to have acute cellulitis of the left lower extremity involving left lower leg. There was no evidence of sepsis or severe sepsis. His routine blood work was unremarkable. Lactic acid was normal. Patient was treated with IV Unasyn. Blood culture sent and showed no growth in 48 hours. Patient remained afebrile throughout the hospital stay. His other vital signs were stable throughout the hospital stay. Swelling and erythema of the left lower leg significantly improved. Patient discharged home in a stable medical condition, discharged on Augmentin 875 mg p.o. twice daily for 5 days more of treatment to complete total of 8 days of treatment, continued on his previous home medications without any changes including Coumadin, INR upon discharge was 2.2, recommended follow-up with PCP in 1 week. - Physical Exam Vitals/I&O's: Vital Signs Temp Pulse Resp BP Pulse Ox 98.2 F 70 18 140/85 H 98 07/01/20 08:40 07/01/20 08:40 07/01/20 08:40 07/01/20 08:40 07/01/20 08:40 Oxygen Delivery Method Room Air Weight: 252 lb 8 oz Body Mass Index (BMI) 30.7 Intake and Output for Last 24 Hours 06/29/20 06/30/20 07/01/20 23:59 23:59 23:59 Intake Total 1692.67 / 2042.67 1748.25 / 2048.25 674 / 674 Output Total 1200 / 2100 1600 / 1600 Balance 1692.67 / 2042.67 548.25 / -51.75 -926 / -926 General: Alert, Oriented x3, Cooperative, No apparent distress HEENT: Atraumatic, PERRLA, EOMI, Normocephalic Oral: Moist Mucosa, No Gingival or Mucosal Lesions/ Ulcerations Neck: Supple, No JVD, Negative Carotid Bruits, Trachea Midline, Thyroid Normal Size and Texture Lungs: Clear to auscultation, Normal air movement, No rhonchi, No wheeze, No rales, Diminished Cardiovascular: Regular rate, Regular Rhythm, Normal S1, Normal S2, PMI Normal Abdomen: Bowel Sounds Present, Soft, Non Tender, Non-Distended, No Hepato-splenomegaly Extremities: No clubbing, No cyanosis, Edema - Trace edema., - - Left leg: Erythema and swelling improved, no open wounds or drainage. Skin: No rashes, No breakdown Lymphatic: No Cervical, Supraclavicular, or Inguinal Adenopathy Neurological: Cranial nerves II-XII grossly intact, Neuro grossly intact Psych/Mental Status: Normal Affect, Appropriate Microbiology Past 72 Hours 06/28/20 21:20 Blood Culture (Wb) - Right Hand Blood Culture - Preliminary No growth in 48 hours. 06/28/20 21:20 Blood Culture (Wb) - Anticubital Left Blood Culture - Preliminary No growth in 48 hours. Laboratory Results 06/30/20 11:48: POC Glucose 199 H 06/30/20 16:16: POC Glucose 82 06/30/20 21:14: POC Glucose 89 07/01/20 06:20: PT 24.0 H, INR 2.2 07/01/20 06:20: WBC 6.9, RBC 4.51 L, Hgb 13.3, Hct 41.4, MCV 91.8, MCH 29.5, MCHC 32.1, RDW Std Deviation 49.0 H, RDW Coeff of [place]iera 14.5, Plt Count 171, MPV 12.6 H, Immature Gran % (Auto) 0.400, Neut % (Auto) 72.9 H, Lymph % (Auto) 17.9 L, [place] % (Auto) 7.3, Eos % (Auto) 1.2, Baso % (Auto) 0.3, Absolute Neuts (auto) 5.0, Absolute Lymphs (auto) 1.23, Nucleated RBC % 0 07/01/20 06:20: Sodium 141, Potassium 3.9, Chloride 107, Carbon Dioxide 28.0, Anion Gap 6, BUN 18, Creatinine 0.82, Estim Creat Clear Calc 102.91, Est GFR (MDRD) Af Amer 120, Est GFR (MDRD) Non-Af 99, BUN/Creatinine Ratio 22.1 H, Glucose 133 H, Calcium 9.0 07/01/20 06:38: POC Glucose 154 H Discharge Activity: Return to Normal Activity Weight Bearing Status: Weight bearing as tolerated Call your doctor if you observe: Fever of 101 or Higher, Shortness of breath, Dizziness, Fainting spells, Chest pain, Increased palpitations (irregular heartbeat), Uncontrolled pain Home Medications: Medications to take at Discharge Amiodarone HCl 200 mg PO DAILY 06/28/20 Atorvastatin Calcium 20 mg PO DAILY 06/28/20 Carvedilol 25 mg PO BID 06/28/20 Furosemide [Lasix] 40 mg PO TU 06/28/20 Glimepiride 4 mg PO DAILY 06/28/20 Hydralazine HCl 25 mg PO BID 06/28/20 Levothyroxine [Synthroid] 50 mcg PO DAILY 06/28/20 Losartan Potassium 50 mg PO QHS 06/28/20 Metformin HCl 500 mg PO BID 06/28/20 Potassium Chloride [K-Dur] 10 meq PO DAILY 06/28/20 Warfarin [Coumadin] 4 mg PO DAILY 06/28/20 Amox/Clavulanate Tablet [Augmentin Tablet] 875 mg PO Q12H #10 tab 07/01/20 Following Prescriptions Were Given to Patient: Amox/Clavulanate Tablet [Augmentin Tablet] 875 mg PO Q12H #10 tab [facility]: [facility] [address] [facility] Primary Care Physician: Alfredito Rice MD [Primary Care Provider] - Please follow up with your Primary Care Physician in: 1 week. Disposition: Home Minutes spent on discharge:: 27 Patient Condition:: Stable Medical Necessity - Tobacco Use Smoking Status: Former smoker Meaningful Use Info Meaningful Use Diagnoses (Choose all that apply): None applicable Inpatient E&M: 32485 Disch Hosp
== END 2020-07-01 09:35 | disposition home or self-care (01) | DRG 603 ==
LOC: ED 21:36 → MS3 22:50
PROVIDERS: Internal Medicine; Admitting Provider Student in an Organized Health Care Education/Training Program; Emergency Provider Emergency Medicine; PCP Family Medicine Geriatric Medicine; Visit Provider Hospitalist
DX: L03.116 Cellulitis of left lower limb (principal); I48.20 Chronic atrial fibrillation, unspecified; E11.9 Type 2 diabetes mellitus without complications; I25.10 Atherosclerotic heart disease of native coronary artery without angina pectoris; I11.0 Hypertensive heart disease with heart failure; I50.9 Heart failure, unspecified; Z66 Do not resuscitate; W55.01XA Bitten by cat, initial encounter; Z79.84 Long term (current) use of oral hypoglycemic drugs; Z79.01 Long term (current) use of anticoagulants; Z79.890 Hormone replacement therapy; Z87.891 Personal history of nicotine dependence; Z95.1 Presence of aortocoronary bypass graft; Z95.810 Presence of automatic (implantable) cardiac defibrillator; E03.9 Hypothyroidism, unspecified; E78.2 Mixed hyperlipidemia; I25.5 Ischemic cardiomyopathy
CPT/HCPCS: 36415; 80048; 80053; 81001; 82962; 83605; 85025; 85610; 85730; 87040; 93005; 99285; J7030; J7050; A4216; J0295; J1940

== ENCOUNTER → 2021-11-12 13:20 | Outpatient (CLI) | payer OTHER, SELFPAY ==
--- NOTE | 2021-11-12 13:29 | PCM.CR.ITP ---
Diagnosis - General Information Admitting Diagnosis: NSTEMI, history of previous CABG w/5 vessel bypass graft. Personal Learning Style:: Audio/Visual, Written Barriers to Learning: Vision Impairment Stage of change r/t lifestyle modifications:: Action Gave educational material for:: Treating Heart Disease, Emotions & Heart Disease, Stress Management & Relaxation, Sleep Disorders & Heart Disease, How The Heart Works, What it means to have Heart Disease, How Coronary Artery Disease is Diagnosed, Heart Procedures, What Heart Medications Do, Risk Factors & Modifications, Living an Active Life, Nutrition - Education/Goals Individual Counseling: Initial Assessment: Abnormal Cholesterol Levels, High Blood Pressure, Overweight/Obesity Cardiac Rehabilitation Goals: 1. Maintain the individual as the primary focus of care. 2. To improve the patient's quality of life. 3. Identification of cardiac risk factors and provide cardiac risk factor management. 4. Enhance the psychosocial status of the patient. 5. Reconditioning enough to allow the patient to resume customary activities. 6. Control symptoms of cardiac disease Personal Goals: Initial Assessment: Improve energy level, Participate in home exercise program, Improve knowledge of cardiac disease, Improve muscle strength and endurance, Improve diet and eating habits (eat healthier), Control risk factors (learn risk factor modification) Scale for measuring improvement of personal goals: Enter appropriate number in Comments. 2 = Unchanged. 3 = Slightly Better. 4 = Moderate Improvement. 5 = Met my Goal - Diagnosis & Disease Process Outcomes/Goals: Pt IDs own risk factors & lifestyle modifications by Session 10, Verbalizes symptoms of angina & response by session 3., Pt independently manages Plan/Interventions: Assist Pt to ID & engage in lifestyle modification to reduce CVD risk, Instruct on individual risk factors, Review symptoms of angina & emergency actions, Review secondary diagnosis & identify educational needs. - Safety Referral to Physical Therapy: No Referral to [facility] Case Management: No Fall Risk Assessed:: Yes Assistive Devices:: None Exercise - Initial Assessment - Visit Date of Eval: 11/12/21 Session #:: 0 - Pre-cardaic Rehab assessment Mets: Pre-: >7 METS for 30 minutes by discharge - Physician Prescribed Exercise Modalities: Treadmill, Rower, Airdyne, NuStep Frequency: 3x/week for 12 weeks [36 sessions] Intensity: 60-80% of age predicted maximum heart rate reserve Current METSs:: 3.0 Target Heart Rate:: 97-126 Resting Blood Pressure: 112/72 EKG Type: Sinus Rhythm w/first degree AV block - Outcomes & Goals Goals:: Verbalizes understanding of THR, RPE & goal METS by session 6, Documents in home exercise log/reports 30 min aerobic 5 day/wk by DC, Demonstrates accurate pulse taking by DC - Intervention & Plan Exercise Program Goals: Instruct on personal THR & RPE, Instruct on MET level & personal MET goal, Show patient to take own pulse /validate performance until accurate, Instruct on home exercise - Physical Activity Home Exercise Physical Activity - Home Exercise: Safe Exercise, Warm-up, Self-monitoring, Cool-Down, Home Exercise > 30 min Daily, Sitting Time <3 hours/daily - Outcomes & Goals Outcomes/Goals: Demonstrates correct Warm-up/exercise Cool-Down (S3) if = 2.5 METs, Verbalizes symptoms of exercise intolerance by Session 3 (S3), Demonstrate safe equipment use (S3) & follows exercise prescrition (6) - Intervention & Plan Plan/Intervention: Instruct warm-up & cool-down if exercising at > 2 METs, Instruct on symptoms of exercise intolerance & actions to take, Instruct & monitor on saf, Assess intial functional capacity & safety risk Nutrition - Initial Assessment - Program Goals Nutrition Program Goals: LDL <100 optimal. 100 - 129 Near optimal. 130 - 159 Borderline High. 160 - 189 High. Total Cholesterol <200 desirable. 200 - 239 Borderline High. >/= 240 High. HDL < 40 Low >/=60 High. Triglycerides <150 desirable. <199 optimal. VlDL 5 - 40. HgbA1C <7%. BMI <25 Patient has diagnosis of Hyperlipidemia (ICD E78)?: Yes - Visit Date of Assessment:: 11/12/21 Session #:: 0 - pre-cardiac rehab assessment - Cholesterol/Lipids Triglycerides (mg/dL): 100 - 08/14/2021 Total Cholesterol (mg/dL): 126 LDL Cholesterol (mg/dL): 62 HDL Cholesterol (mg/dL): 44 Determine presence & major risk factors that modify LDL goal: Hypertension or hypertensive medication, Family history of premature CHD in Male < 55 years: female <65 yearsFa, Age men > 45 years; women >/= 55 years Outcomes/Goals: Pt IDs own risk factors & lifestyle modifications by Session 10, Verbalizes symptoms of angina & response by session 3., Pt independently manages Intervention/Plan: Instruct on personal lipid levels & lipid goals/NCEP guidelines, Instruct on cholesterol - Diabetes (Other Core Measures) Diabetes Type: 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 E11 Fasting blood glucose:: 142 Hgb A1C (4.2 - 6.3): 6.6 Insulin dependent injection/pump?: No Non-Insulin Dependent?: Yes - Glucophage Do you monitor your blood sugar at home?: Yes Referral to Diabetic Clinic:: Yes Outcomes/Goals:: Able to state symptoms of, Able to state, Able to state Intervention/Plan:: Instruct on, Refer to, Instruct on - Weight Mgt (Other Care) Not Applicable: No Height: 6 ft 4 in Weight:: 250 lb 1.76 oz BMI: 30.4 Diagnosis Overweight/Obesity BMI> 30% ICD-10 E66: Yes Diagnosis High BMI/Morbid Obesity BMI> 35% ICD-10 Z68: No Outcomes/Goals: Pt sets, maintains & shows weight loss goal & trend during rehab Intervention/Plan: Instruct on ideal BMI & set weight loss goal w/patient, Assist pt to ID & incorporate diet changes for weight loss by S9, Refer to Structured Weight Loss program as appropriate, Encourage goal of using 250-300dcal per session for weight loss - Healthy Eating Habits Will attend diet classes:: Yes Outcomes/Goals:: Consume diet rich in vegs,fruits,whole grain/high fiber,fish,lean meat, Limit sat/trans fats,cholesterol & added salts & sugars Intervention/Plan:: Assess current eating habits - Education Gave educational materials for:: Signs & symptoms of hypoglycemia, Signs & symptoms of hyperglycemia, Relate diabetes to coronary artery disease, Healthy eating Nutrition - 30-Day Assessment Nutrition - 60-Day Assessment Nutrition - 90-Day Assessment Nutrition - Final Assessment Medical - Initial Assessment - Visit Date of Eval: 11/12/21 Session #:: 0 - pre-cardiac rehab assessment - Medication Compliance Preventative Medication(s):: Aspirin, Clopidogrel/P2Y12 inhibit, Statin/lipid, Beta jaylen, Warfarin/Coumadin H/O mental health issues: depression, anxiety, or addiction?: No Doesn?t believe in the benefits of treatment?: No Believes medications are unnecessary or harmful?: No Has a concern about medication side effects?: No Expresses concern over the cost of medications?: No Outcomes/Goals: Verbalizes medications,desired effect & common side effects @ DC, Pt self-reports following medication regimen, Keeps card in wallet w/medications listed by DC Interventions/plans: Instruct on medication effects & side effects, Review medication list w/patient every two weeks, Instruct importance of taking meds as ordered & assist problem solving - Tobacco Use Tobacco Use: Non-smoker - Hypertension Hypertension Diagnosis:: Hypertension ICD-10 I10 Resting Blood Pressure:: 112/72 [place] [employer] Hypertension Guidelines: [place] [employer] Hypertension Guidelines. Normal BP Less than 120/80. Elevated BP 120/80. Hypertension Stage 1: BP 130-139/80-89. Hypertesnion Stage 2: BP 140 or higher/90 or higher. Hypertension Crisis: BP higher than 180/120 Outcomes/Goals: Able to verbalize/achieve optimal blood pressure <130/80, Incorporates diet changes & exercise for blood pressure control by DC Interventions/plan: Instruct on optimal blood pressure, hypertension & medications, Instruct on effects of sodium, alcohol, stress, exercise &hypertension - Tobacco Cessation Referral Smoking Cessation Referral:: No Individual Education/Counseling:: No Education Schedule Given:: Yes - Online resources and printed education manual provided to patient Medical- 30-Day Assessment Medical- 60-Day Assessment Medical- 90-Day Assessment Medical - Final Assessment Psychosocial - Initial Assess - VIsit Date of Eval: 11/12/21 Session #:: 0 - pre-cardiac rehab assessment Not Applicable: Yes History of previous Mental disease:: No - Psychosocial Test Tool Used:: [employer] StormPins QOL Cardiac, PHQ-9 Questionnaire phq-9 Severity: Severity. 1-4 Minimal Depression. 5-9 Mild Depression. 10-14 Moderate Depression. 15-19 Moderately Sever Depression. 20-27 Severe Depression. Rule: - Referral to Behavioral Health PS - Interventions: Yes Attend Stress Management Classes, No Referral to Behavioral Health if PHQ-9 score >9:, No Referral to [facility], No Referral to Physician if PHQ-9 if score is 5-9: - Outcomes/Goals: See list Psychosocial Outcomes/Goals:: ID's personal stressors & 2 strategies to manage stress by discharge - Intervention/Plan: See List Interventions/Plan:: Assess stressors,coping strategies & signs of derpression on admission, Instruct/assist pt to develop coping & personal stress Mgt strategies, Instruct patient to recognize signs & symptoms of depression, Instruct patient to recog Psychosocial - 30-Day Assess Psychosocial - 60-Day Assess Psychosocial - 90-Day Assess Psychosocial - Final Assessmen Patient Health Questionnaire Initial Assessment 1. Little interest or pleasure in doing things: Several days 2. Feeling down, depressed, or hopeless: Several days 3. Trouble falling or staying asleep, or sleeping too much: Not at all 4. Feeling tired or having little energy: Not at all 5. Poor appetite or overeating: Several days 6. Feeling bad about yourself -- or that you are a failure or have let yourself or your family down: Not at all 7. Trouble concentrating on things, such as reading the newspaper or watching television: More than half the days 8. Moving or speaking so slowly that other people could have noticed. Or the opposite - being so fidgety or restless that you have been moving around a lot more than usual: Not at all 9. Thoughts that you would be better off , or of hurting yourself in some way: Not at all How difficult have these problems made it for you to do your work, take care of things at home, or get along with other people?: Somewhat difficult Total Score: 5 MARNI-Q SV Test - Statements CAD is a disease of the arteries in the heart: False Examples of risk factors for heart disease: True Angina is chest pain or discomfort: True The benefits of resistance training include: True Eating more meat and dairy products: False Anti-platelet medications such as aspirin are important: True The only effective way to manage stress: False An exercise warm-up slowly increases heart rate: True Prepared, processed foods usually have high sodium: True Depression is common after a heart attack: True The statin medications lower cholesterol: True To control blood pressure, lower the amount of sodium: True If someone gets chest discomfort during walking: False Transfats are partially hydrogenated vegetable oils: True Sleep apnea that is not treated increases the risk: False To control cholesterol, one should become a vegetarian: False Someone knows if he/she is exercising at the right level: True Diabetes cannot be prevented with exercise & health eating: False Stress is a large risk for heart attack: True A diet that can help lower blood pressure is rich in: True - Total Score Total Correct Responses: 20 Self-Efficacy Initial Assessment We would like to know how confident you are in doing certain activities. Please select your confidence level for:: Select your confidence level for the following using the scale 1-10 where 1 is not at all confident and 10 is totally confident. Your score is the average of all 6 responses. Fatigue: How confident are you that you can keep the fatigue caused by your disease from interfering with the things you want to do? Select Number: 3 Physical Discomfort or Pain: How confident are you that you can keep the physical discomfort or pain of your disease from interfering with the things you want to do? Select Number: 5 Emotional Distress: How confident are you that you can keep the emotional distress caused by your disease from interfering with the things you want to do? Select Number: 7 Other Symptoms or Health Problems: How confident are you that you can keep other symptoms or health problems from interfering with the things you want to do? Select Number: 7 Different Tasks and Activities: How confident are you that you can do the different tasks and activities needed to manage your health condition so as to reduce your need to see a doctor? Select Number: 7 Medication: How confident are you that you can do things other than just taking medication to reduce how much your illness affects your everyday life? Select Number: 7 Total Score:: 6 Nutrition Survey - Nutrition Survey Initial Have you lost >10 lbs over the past 2 months without trying?: No Are you following a special diet at home for diabetes, low fat, or low salt?: No Are you interested in meeting with a dietitian for help understanding your diet?: No Do you eat less than 3 meals a day?: No Do you eat fatty meats (uribe, sausage, ribs, etc), fried foods, desserts, large amounts of salad dressings, margarine, butter, or cheese most days?: No Do you have food allergies? [Enter types in comment field]: No Do you eat in restaurants more than 3 times a week?: No Do you season food with salt, seasoning salt, or garlic salt?: No Do you used canned, boxed, frozen meals, or soups, seasoning packets?: Yes Total Score:: 1
--- NOTE | 2021-11-12 13:29 | PCM.CR.HP2 ---
CR - History & Physical - General Arrival date:: 11/12/21 Arrival time:: 13:15 Date of Referral:: 11/07/21 Date of CR Evaluation:: 11/12/21 Referring Physician: DR. EVELINE PRASAD DO of the [facility]-[place] Primary Diagnosis: NSTEMI - History of Present Cardiac Event Onset Date: Enter Onset Date of cardiac illnesses in Comment field below Acute Myocardial Infarction within 12 months:: Yes - 08/26/2021 Coronary Artery Bypass Graft:: Yes - s/p CABG x 5 vessel on Type of Symptoms:: Chest pain/two cardiac events Interventions with present event:: Heart cath/stress test found everything was clear no blockages. Were there any complications?: None - Sleep Disorder Evaluation Hx of Sleep Apnea: No Do you snore loudly (louder than talking or can be heard through closed doors)?: Yes Do you often feel tired/ fatigued/ sleepy during daytime?: Yes - sometimes Has anyone observed you stop breathing during sleep?: No History of Hypertension (for STOP score): Yes STOP Results: Positive - Medications Home Medications: Ambulatory Orders Medication Instructions Recorded Carvedilol 25 mg PO BID 06/28/20 amiodarone 200 mg PO DAILY 06/28/20 atorvastatin 10 mg PO DAILY 06/28/20 furosemide 40 mg PO BID 06/28/20 glimepiride 4 mg PO DAILY 06/28/20 hydralazine 25 mg PO BID 06/28/20 levothyroxine 50 mcg PO DAILY 06/28/20 losartan 100 mg PO QHS 06/28/20 metformin 500 mg PO BID 06/28/20 potassium chloride 10 meq PO DAILY 06/28/20 warfarin 4 mg PO DAILY 06/28/20 amoxicillin-pot clavulanate 875 mg PO Q12H #10 tab 07/01/20 clopidogrel 75 mg PO DAILY 11/12/21 - Allergies Allergies/Adverse Reactions: Allergies bee venom protein (honey bee) Allergy (Verified 06/28/20 20:55) Anaphylaxis perflutren [From Definity] Allergy (Verified 06/28/20 20:56) PT UNSURE OF REACTION Advanced Directives - Advanced Directives Power of Doorkeeper: No Living Will: No Advance Directives Information Provided: Yes Advance Directives on File: No DNR Order?:: No - MOLST See MOLST form: No Past Medical History - Covid-19 Screening Fever: No Unexplained muscle aches: No Current respiratory symptoms: No Upper respiratory infections symptoms: No Gastro-intestinal symptoms: No [id number] symptoms: No Has tested positive for COVID-19 in last 30 days: No Date of testin11/05/21 - Had the third vaccine (Booster injection) Had contact w/person w/symptoms or Covid-19 (+) last 14 days: No Has High Risk Exposures ID'd by Health dept/Inf Control team: No 65 years or older:: No Lives in Assisted Living facility:: No Has a chronic lung disease or moderate to severe asthma:: No Has a serious heart condition:: Yes Immunocompromised:: No Severely obese (Body Mass Index of 40 or higher):: No Diabetic:: Yes Has chronic kidney disease undergoing dialysis:: No Has liver disease:: No - Past Surgical History Surgical History: noncontributory, coronary bypass surgery - S/P CABG in 1998 5 vessel, total knee arthroplasty - replacement of the right knee joint, - - tonsillectomy & adenoidectomy, hernia repair Social History - Smoking History Smoking Status: Former smoker Hx Smoking Cessation Date: 04/29/99 - Alcohol Use Alcohol Usage: No - not since 1989 - Substance Abuse Hx Substance Use: No - Occupation Occupation (List type of work in comments):: Retired - Hobbies, Recreation, Social Activities Hobbies: Sports - Golf , Other Recreational Activities: I am able to engage in most, but not all activities - sometimes have to stop in the middle of an activty catch a second wind but can do most of them. Social Environment - Status Marital Status: - Current Living Arrangements Living Environment:: Spouse - Children How many children do you have?: 2 Do any of your children live nearby?: Yes - Safety Do you feel safe in your surroundings?: Yes - Assistance Do you need any assistance at home?: no Review of Systems - Review of Systems Hints: Right click = Denies ([place]). Left click = Reports ([place]) Review of Present Symptoms: Reports: Shortness of Breath with Exertion, Dizziness/Lightheadedness - patient believes casused by medication not medically related., Fatigue, Appetite - Normal, Sleep - Normal. Denies: Shortness of Breath at Rest, Angina, Appetite - Special Diet, Sexual Changes - Pain Is Patient Pain Free?: Yes Pain Location: none Pain Level: 0/10 Risk Factor Assessment - Chief Complaint Chief Complaint: NSTEMI - Vital Signs Temperature: 97.3 F Pulse Ox: 16 Blood Pressure: 112/72 - Pulse Pulse Rate: 68 Pulse Rhythm: Regular - Hypertension How long have you been treated?: 1998 Blood Pressure Sitting - Left Arm: 112/72 - Stress Stress: Recent - Blood Cholesterol/Lipids Total Cholesterol (mg/dL) Goal = less than 200 mg/dL: 126 HDL Cholesterol (mg/dL) Goal = less than 40 mg/dL: 44 LDL Cholesterol (mg/dL) Goal = less than 70 mg/dL: 62 Triglycerides (mg/dL) Goal = less than 150 mg/dL: 100 - Diabetes Diabetic History: Type II, Medication Dependent Nutrition Referral for Diabetes: Yes - Obesity Height: 6 ft 4 in Weight:: 250 lb 1.76 oz Weight in Pounds: 250.1 lbs Weight Source: Standing Scale Body Mass Index (BMI): 30.4 Nutritional Referral for Obesity: Yes - Physical Inactivity Physical Inactivity: Reg Exercise 30 min/day - walking paly golf - Risk Stratification Risk Guidelines: Lowest Risk: Risk Factor for Smoking, Risk Factor for Dyslipidemia, Risk Factor for Diabetes - 142 FSBS A1c 6.6, Risk Factor for Hypertension, Risk Factor for Sedentary Lifestyle, Highest Risk: Risk Factor for Obesity Motivation - Motivation to Participate On a scale of 1 to 10, how prepared are you to commit to attending program?: 9 What do you see as barriers to successfully being able to complete the program?: none What do you see as the benefits of succesfully completing the program? In other words, what do you hope to get out of participating in the program?: getting some strenght, controlling breathing, losing some weight. Are there issues you are dealing with that will interfere with completing the program?: no Do you have a spouse or signficant other, family or friends who will help support you to complete the program?: yes
[2021-11-12 14:02] VITALS: BP 112/72; PULSE 68; TEMP 36.3; O2SAT 16; BMI 30.4
[2021-11-12 14:45] VITALS: BP 112/72; BMI 30.4
== END ==
PROVIDERS: PCP Family Medicine Geriatric Medicine
DX: I25.5 Ischemic cardiomyopathy (principal); I10 Essential (primary) hypertension; E78.2 Mixed hyperlipidemia; E03.9 Hypothyroidism, unspecified

== ENCOUNTER 2021-11-26 09:30 | Outpatient (RCR) | payer OTHER, SELFPAY ==
[2021-11-12 14:45] VITALS: BMI 30.4
== END 2021-11-28 23:59 ==
LOC: CR 09:30
PROVIDERS: PCP Family Medicine Geriatric Medicine
DX: I25.10 Atherosclerotic heart disease of native coronary artery without angina pectoris (principal); I25.2 Old myocardial infarction
CPT/HCPCS: 93798

== ENCOUNTER 2021-12-29 09:30 | Outpatient (RCR) | payer OTHER, SELFPAY ==
[2021-11-12 14:45] VITALS: BMI 30.4
--- NOTE | 2021-12-12 08:22 | CR.ITP_ITS ---
Diagnosis Exercise - 30-day Assessment - Visit Date of Eval: 12/12/21 Session #:: 8 Comments:: Pt missed the last 2 sessions due to covid symptoms. Pt is to go get tested. 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 - Outcomes & Goals Goals:: Verbalizes understanding of THR, RPE & goal METS by session 6, Documents in home exercise log/reports 30 min aerobic 5 day/wk by DC, Demonstrates accurate pulse taking by DC, Other additional outcome/goals: see below - Intervention & Plan Exercise Program Goals: Instruct on personal THR & RPE, Instruct on MET level & personal MET goal, Show patient to take own pulse /validate performance until accurate, Instruct on home exercise, Other additional plan/int - 30-day Reassessments 30 day Reassessments:: Progressing - Physical Activity Home Exercise Physical Activity - Home Exercise: Safe Exercise, Warm-up, Self-monitoring, Cool-Down, Home Exercise > 30 min Daily, Sitting Time <3 hours/daily - Outcomes & Goals Outcomes/Goals: Demonstrates correct Warm-up/exercise Cool-Down (S3) if = 2.5 METs, Verbalizes symptoms of exercise intolerance by Session 3 (S3), Demonstrate safe equipment use (S3) & follows exercise prescrition (6), Other: See below - Intervention & Plan Plan/Intervention: Instruct warm-up & cool-down if exercising at > 2 METs, Instruct on symptoms of exercise intolerance & actions to take, Instruct & monitor on saf, Assess intial functional capacity & safety risk, Other See below - 30-day Reassessments 30 day Reassessments:: Progressing Nutrition - Initial Assessment Nutrition - 30-Day Assessment - Program Goals Nutrition Program Goals: LDL <100 optimal. 100 - 129 Near optimal. 130 - 159 Borderline High. 160 - 189 High. Total Cholesterol <200 desirable. 200 - 239 Borderline High. >/= 240 High. HDL < 40 Low >/=60 High. Triglycerides <150 desirable. <199 optimal. VlDL 5 - 40. HgbA1C <7%. BMI <25 Patient has diagnosis of Hyperlipidemia (ICD E78)?: Yes - Visit Date of Assessment:: 12/12/21 Session #:: 8 - Cholesterol/Lipids Determine presence & major risk factors that modify LDL goal: Hypertension or hypertensive medication, Low HDL cholesterol <40 mg/dL*, Family history of premature CHD in Male < 55 years: female <65 yearsFa, Age men > 45 years; women >/= 55 years Outcomes/Goals: Pt IDs own risk factors & lifestyle modifications by Session 10, Verbalizes symptoms of angina & response by session 3., Pt independently manages, Other Additional Outcomes/Goals: Intervention/Plan: Advocate for lipid panel cholesterol medication if applicable, Instruct on personal lipid levels & lipid goals/NCEP guidelines, Instruct on cholesterol, Other additional plan/int 30-day Reassessments:: Progressing - Diabetes (Other Core Measures) Diabetes Type: 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 E11 Fasting blood glucose:: 142 Hgb A1C (4.2 -6.3): 6.6 Insulin dependent injection/pump?: No Non-Insulin Dependent?: Yes - glucophage Do you monitor your blood sugar at home?: Yes Referral to Diabetic Clinic:: Yes Outcomes/Goals:: Able to state symptoms of, Able to state, Able to state, Other additional Intervention/Plan:: Instruct on, Refer to, Instruct on, Other 30-day Reassessments:: Progressing - Weight Mgt (Other Care) Not Applicable: Yes Height: 6 ft 4 in Weight:: 116.8 kg BMI: 31.3 Diagnosis Overweight/Obesity BMI> 30% ICD-10 E66: Yes Outcomes/Goals: Pt sets, maintains & shows weight loss goal & trend during rehab, Other additional outcomes/goals Intervention/Plan: Instruct on ideal BMI & set weight loss goal w/patient, Assist pt to ID & incorporate diet changes for weight loss by S9, Refer to Structured Weight Loss program as appropriate, Encourage goal of using 250- 300dcal per session for weight loss, Other additional plan/interventions 30 day Reassessments:: Progressing - Healthy Eating Habits Will attend diet classes:: Yes Outcomes/Goals:: Consume diet rich in vegs,fruits,whole grain/high fiber,fish,lean meat, Limit sat/trans fats,cholesterol & added salts & sugars, Other additional outcome/goals: Intervention/Plan:: Assess current eating habits, Other Additional plan/interventions 30-day Reassessments:: Progressing - Education Gave educational materials for:: Signs & symptoms of hypoglycemia, Signs & symptoms of hyperglycemia, Relate diabetes to coronary artery disease, Healthy eating Nutrition - 60-Day Assessment Nutrition - 90-Day Assessment Nutrition - Final Assessment Medical - Initial Assessment Medical- 30-Day Assessment - Visit Date of Eval: 12/12/21 Session #:: 8 - Medication Compliance Preventative Medication(s):: Aspirin, Clopidogrel/P2Y12 inhibit, Statin/lipid, Beta jaylen H/O mental health issues: depression, anxiety, or addiction?: No Doesn?t believe in the benefits of treatment?: No Believes medications are unnecessary or harmful?: No Has a concern about medication side effects?: No Expresses concern over the cost of medications?: No Outcomes/Goals: Verbalizes medications,desired effect & common side effects @ DC, Pt self-reports following medication regimen, Keeps card in wallet w/medications listed by DC, Other additional outcome/goals: Interventions/plans: Instruct on medication effects & side effects, Review medication list w/patient every two weeks, Instruct importance of taking meds as ordered & assist problem solving, Other additional 30-day Reassessments:: Progressing - Tobacco Use Tobacco Use: Non-smoker Do you use smokeless tobacco?: No 30-day Reassessments:: Progressing - Hypertension Hypertension Diagnosis:: Hypertension ICD-10 I10 Resting Blood Pressure:: 154/84 [place] [employer] Hypertension Guidelines: [place] [employer] Hypertension Guidelines. Normal BP Less than 120/80. Elevated BP 120/80. Hypertension Stage 1: BP 130-139/80-89. Hypertesnion Stage 2: BP 140 or higher/90 or higher. Hypertension Crisis: BP higher than 180/120 Peak Exercise Blood Pressure:: 170/90 Outcomes/Goals: Able to verbalize/achieve optimal blood pressure <130/80, Incorporates diet changes & exercise for blood pressure control by DC, Other additional outcomes/goals Interventions/plan: Instruct on optimal blood pressure, hypertension & medications, Instruct on effects of sodium, alcohol, stress, exercise &hypertension, Other additional plan/interventions 30 day Reassessments:: Progressing - Tobacco Cessation Referral Smoking Cessation Referral:: No Individual Education/Counseling:: No Education Schedule Given:: Yes Medical- 60-Day Assessment Medical- 90-Day Assessment Medical - Final Assessment Psychosocial - Initial Assess Psychosocial - 30-Day Assess - VIsit Date of Eval: 12/12/21 Session #:: 8 Not Applicable: Yes History of previous Mental disease:: No - Outcomes/Goals: See list Psychosocial Outcomes/Goals:: ID's personal stressors & 2 strategies to manage stress by discharge, Other Additional outcome/goals: - Intervention/Plan: See List Interventions/Plan:: Assess stressors,coping strategies & signs of derpression on admission, Instruct/assist pt to develop coping & personal stress Mgt strategies, Refer to Behavioral Health if appropriate, Refer to Physician if appropriate, Instruct patient to recognize signs & symptoms of depression, Instruct patient to recog, Other additional plan/intervention - 30-day Reassessments: 30 day Reassessments:: Progressing Psychosocial - 60-Day Assess Psychosocial - 90-Day Assess Psychosocial - Final Assessmen Patient Health Questionnaire 30-Day Re-eval Assessment 1. Little interest or pleasure in doing things: Several days 2. Feeling down, depressed, or hopeless: Several days 3. Trouble falling or staying asleep, or sleeping too much: Not at all 4. Feeling tired or having little energy: Not at all 5. Poor appetite or overeating: Several days 6. Feeling bad about yourself -- or that you are a failure or have let yourself or your family down: Not at all 7. Trouble concentrating on things, such as reading the newspaper or watching television: More than half the days 8. Moving or speaking so slowly that other people could have noticed. Or the opposite - being so fidgety or restless that you have been moving around a lot more than usual: Not at all 9. Thoughts that you would be better off , or of hurting yourself in some way: Not at all How difficult have these problems made it for you to do your work, take care of things at home, or get along with other people?: Somewhat difficult Total Score: 5 Self-Efficacy 30-Day Re-eval Assessment We would like to know how confident you are in doing certain activities. Please select your confidence level for:: Select your confidence level for the following using the scale 1-10 where 1 is not at all confident and 10 is totally confident. Your score is the average of all 6 responses. Fatigue: How confident are you that you can keep the fatigue caused by your disease from interfering with the things you want to do? Select Number: 3 Physical Discomfort or Pain: How confident are you that you can keep the physical discomfort or pain of your disease from interfering with the things you want to do? Select Number: 5 Emotional Distress: How confident are you that you can keep the emotional dist ress caused by your disease from interfering with the things you want to do? Select Number: 7 Other Symptoms or Health Problems: How confident are you that you can keep other symptoms or health problems from interfering with the things you want to do? Select Number: 7 Different Tasks and Activities: How confident are you that you can do the different tasks and activities needed to manage your health condition so as to reduce your need to see a doctor? Select Number: 7 Medication: How confident are you that you can do things other than just taking medication to reduce how much your illness affects your everyday life? Select Number: 7 Total Score:: 6 Nutrition Survey
[2021-12-12 08:42] VITALS: BP 154/84; BP 170/90; BMI 31.3
== END 2021-12-29 23:59 ==
LOC: CR 09:30
PROVIDERS: PCP Family Medicine Geriatric Medicine
DX: I25.2 Old myocardial infarction (principal); I25.10 Atherosclerotic heart disease of native coronary artery without angina pectoris
CPT/HCPCS: 93798

== ENCOUNTER 2022-01-26 09:30 | Outpatient (RCR) | payer OTHER, SELFPAY ==
[2021-12-12 08:42] VITALS: BMI 31.3
[2021-12-30 00:44] VITALS: BP 154/84; BP 170/90
--- NOTE | 2022-01-12 09:42 | CR.ITP_ITS ---
Diagnosis Exercise - 60-day Assessment - Visit Date of Eval: 01/12/22 Session #:: 19 - has missed 2 scheduled appointment. - Physician Prescribed Exercise Modalities: Treadmill, NuStep Frequency: 3x/week for 12 weeks [36 sessions] Intensity: 60-80% of age predicted maximum heart rate reserve Current METSs:: 4.5 Target Heart Rate:: 97-126 Current RPE:: 13 Maximum Excercise HR:: 103 Resting Blood Pressure: 108/70 Maximum Exercise Blood Pressure: 150/68 EKG Type: NSR to sinus tach w/AV [id number] PAC & PVC - Outcomes & Goals Goals:: Verbalizes understanding of THR, RPE & goal METS by session 6, Documents in home exercise log/reports 30 min aerobic 5 day/wk by DC, Demonstrates accurate pulse taking by DC - Intervention & Plan Exercise Program Goals: Instruct on personal THR & RPE, Instruct on MET level & personal MET goal, Show patient to take own pulse /validate performance until accurate, Instruct on home exercise - 30-day Reassessments 30 day Reassessments:: Progressing - Physical Activity Home Exercise Physical Activity - Home Exercise: Safe Exercise, Warm-up, Self-monitoring, Cool-Down, Home Exercise > 30 min Daily, Sitting Time <3 hours/daily - Outcomes & Goals Outcomes/Goals: Demonstrates correct Warm-up/exercise Cool-Down (S3) if = 2.5 METs, Verbalizes symptoms of exercise intolerance by Session 3 (S3), Demonstrate safe equipment use (S3) & follows exercise prescrition (6) - Intervention & Plan Plan/Intervention: Instruct warm-up & cool-down if exercising at > 2 METs, Instruct on symptoms of exercise intolerance & actions to take, Instruct & monitor on saf, Assess intial functional capacity & safety risk - 30-day Reassessments 30 day Reassessments:: Progressing Nutrition - Initial Assessment Nutrition - 30-Day Assessment Nutrition - 60-Day Assessment - Program Goals Nutrition Program Goals: LDL <100 optimal. 100 - 129 Near optimal. 130 - 159 Borderline High. 160 - 189 High. Total Cholesterol <200 desirable. 200 - 239 Borderline High. >/= 240 High. HDL < 40 Low >/=60 High. Triglycerides <150 desirable. <199 optimal. VlDL 5 - 40. HgbA1C <7%. BMI <25 Patient has diagnosis of Hyperlipidemia (ICD E78)?: Yes - Visit Date of Assessment:: 01/12/22 Session #:: 19 - Cholesterol/Lipids Triglycerides (mg/dL): 100 Total Cholesterol (mg/dL): 126 LDL Cholesterol (mg/dL): 62 HDL Cholesterol (mg/dL): 44 Determine presence & major risk factors that modify LDL goal: Hypertension or hypertensive medication, Family history of premature CHD in Male < 55 years: female <65 yearsFa, Age men > 45 years; women >/= 55 years Outcomes/Goals: Pt IDs own risk factors & lifestyle modifications by Session 10, Verbalizes symptoms of angina & response by session 3., Pt independently manages Intervention/Plan: Instruct on personal lipid levels & lipid goals/NCEP guidelines, Instruct on cholesterol Referral to dietitian:: Yes - Medical Nutrition Therapy 30-day Reassessments:: Progressing - Diabetes (Other Core Measures) Diabetes Type: 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 E11 Non-Insulin Dependent?: Yes - Glucophage 1,000mg BID Referral to Diabetic Clinic:: Yes - Weight Mgt (Other Care) Not Applicable: No Height: 6 ft 3.9 in Weight:: 258 lb BMI: 31.4 Diagnosis Overweight/Obesity BMI> 30% ICD-10 E66: Yes Diagnosis High BMI/Morbid Obesity BMI> 35% ICD-10 Z68: No Intervention/Plan: Refer to Structured Weight Loss program as appropriate 30 day Reassessments:: Progressing - Healthy Eating Habits Will attend diet classes:: Yes Outcomes/Goals:: Consume diet rich in vegs,fruits,whole grain/high fiber,fish,lean meat, Limit sat/trans fats,cholesterol & added salts & sugars Intervention/Plan:: Assess current eating habits 30-day Reassessments:: Progressing - Education Gave educational materials for:: Healthy eating Nutrition - 90-Day Assessment Nutrition - Final Assessment Medical - Initial Assessment Medical- 30-Day Assessment Medical- 60-Day Assessment - Visit Date of Eval: 01/12/22 Session #:: 19 - Medication Compliance Preventative Medication(s):: Aspirin, [place] inhibitor, Clopidogrel/P2Y12 inhibit, Statin/lipid, Beta jaylen, Warfarin/Coumadin H/O mental health issues: depression, anxiety, or addiction?: No Doesn?t believe in the benefits of treatment?: No Believes medications are unnecessary or harmful?: No Has a concern about medication side effects?: No Expresses concern over the cost of medications?: No Outcomes/Goals: Verbalizes medications,desired effect & common side effects @ DC, Pt self-reports following medication regimen, Keeps card in wallet w/medications listed by DC Interventions/plans: Instruct on medication effects & side effects, Review medication list w/patient every two weeks, Instruct importance of taking meds as ordered & assist problem solving 30-day Reassessments:: Progressing - Tobacco Use Tobacco Use: Non-smoker - Hypertension Hypertension Diagnosis:: Hypertension ICD-10 I10 Resting Blood Pressure:: 108/70 [place] [employer] Hypertension Guidelines: [place] [employer] Hypertension Guidelines. Normal BP Less than 120/80. Elevated BP 120/80. Hypertension Stage 1: BP 130-139/80-89. Hypertesnion Stage 2: BP 140 or higher/90 or higher. Hypertension Crisis: BP higher than 180/120 Peak Exercise Blood Pressure:: 150/68 Outcomes/Goals: Able to verbalize/achieve optimal blood pressure <130/80, Incorporates diet changes & exercise for blood pressure control by DC Interventions/plan: Instruct on optimal blood pressure, hypertension & medications, Instruct on effects of sodium, alcohol, stress, exercise &hypertension 30 day Reassessments:: Progressing - Tobacco Cessation Referral Smoking Cessation Referral:: No Individual Education/Counseling:: No Education Schedule Given:: Yes Medical- 90-Day Assessment Medical - Final Assessment Psychosocial - Initial Assess Psychosocial - 30-Day Assess Psychosocial - 60-Day Assess - VIsit Date of Eval: 01/12/22 Session #:: 19 Not Applicable: Yes History of previous Mental disease:: No - Psychosocial Test Tool Used:: PHQ-9 Questionnaire phq-9 Severity: Severity. 1-4 Minimal Depression. 5-9 Mild Depression. 10-14 Moderate Depression. 15-19 Moderately Sever Depression. 20-27 Severe Depression. Rule: - Referral to Behavioral Health PS - Interventions: Yes Attend Stress Management Classes, No Referral to Behavioral Health if PHQ-9 score >9:, No Referral to [facility], No Referral to Physician if PHQ-9 if score is 5-9: - Outcomes/Goals: See list Psychosocial Outcomes/Goals:: ID's personal stressors & 2 strategies to manage stress by discharge - Intervention/Plan: See List Interventions/Plan:: Assess stressors,coping strategies & signs of derpression on admission, Instruct/assist pt to develop coping & personal stress Mgt strategies, Instruct patient to recognize signs & symptoms of depression, Instruct patient to recog - 30-day Reassessments: 30 day Reassessments:: Progressing Psychosocial - 90-Day Assess Psychosocial - Final Assessmen Patient Health Questionnaire 60-Day Re-eval Assessment 1. Little interest or pleasure in doing things: Several days 2. Feeling down, depressed, or hopeless: Several days 3. Trouble falling or staying asleep, or sleeping too much: Not at all 4. Feeling tired or having little energy: Not at all 5. Poor appetite or overeating: Several days 6. Feeling bad about yourself -- or that you are a failure or have let yourself or your family down: Not at all 7. Trouble concentrating on things, such as reading the newspaper or watching television: Several days 8. Moving or speaking so slowly that other people could have noticed. Or the opposite - being so fidgety or restless that you have been moving around a lot more than usual: Not at all 9. Thoughts that you would be better off , or of hurting yourself in some way: Not at all How difficult have these problems made it for you to do your work, take care of things at home, or get along with other people?: Somewhat difficult Total Score: 4 Self-Efficacy 60-Day Re-eval Assessment We would like to know how confident you are in doing certain activities. Please select your confidence level for:: Select your confidence level for the following using the scale 1-10 where 1 is not at all confident and 10 is totally confident. Your score is the average of all 6 responses. Fatigue: How confident are you that you can keep the fatigue caused by your disease from interfering with the things you want to do? Select Number: 5 Physical Discomfort or Pain: How confident are you that you can keep the physical discomfort or pain of your disease from interfering with the things you want to do? Select Number: 6 Emotional Distress: How confident are you that you can keep the emotional distress caused by your disease from interfering with the things you want to do? Select Number: 8 Other Symptoms or Health Problems: How confident are you that you can keep other symptoms or health problems from interfering with the things you want to do? Select Number: 7 Different Tasks and Activities: How confident are you that you can do the different tasks and activities needed to manage your health condition so as to reduce your need to see a doctor? Select Number: 8 Medication: How confident are you that you can do things other than just taking medication to reduce how much your illness affects your everyday life? Select Number: 7 Total Score:: 6 Nutrition Survey
[2022-01-12 09:54] VITALS: BP 108/70; BP 150/68; BMI 31.4
== END 2022-01-26 23:59 ==
LOC: CR 09:30
PROVIDERS: PCP Family Medicine Geriatric Medicine
DX: I25.2 Old myocardial infarction (principal); I25.10 Atherosclerotic heart disease of native coronary artery without angina pectoris
CPT/HCPCS: 93798

== ENCOUNTER 2022-02-25 09:30 | Outpatient (RCR) | payer OTHER, SELFPAY ==
[2022-01-12 09:54] VITALS: BMI 31.4
[2022-01-27 00:35] VITALS: BP 108/70; BP 150/68
--- NOTE | 2022-02-09 13:31 | PCM.CR.ITP ---
Diagnosis Exercise - 90-day Assessment - Visit Date of Eval: 02/09/22 Session #:: 31 - Physician Prescribed Exercise Modalities: Treadmill Frequency: 3x/week for 12 weeks [36 sessions] Intensity: 60-80% of age predicted maximum heart rate reserve Current METSs:: 5.5 Target Heart Rate:: 97-126 Current RPE:: 13-14 Maximum Excercise HR:: 105 Resting Blood Pressure: 136/80 Maximum Exercise Blood Pressure: 150/80 EKG Type: SR to ST 1st degree AV block w/BBB/paced with rare PAC, PVC - Outcomes & Goals Goals:: Verbalizes understanding of THR, RPE & goal METS by session 6, Documents in home exercise log/reports 30 min aerobic 5 day/wk by DC, Demonstrates accurate pulse taking by DC, Other additional outcome/goals: see below - Intervention & Plan Exercise Program Goals: Instruct on personal THR & RPE, Instruct on MET level & personal MET goal, Show patient to take own pulse /validate performance until accurate, Instruct on home exercise, Other additional plan/int - 30-day Reassessments 30 day Reassessments:: Progressing - Physical Activity Home Exercise Physical Activity - Home Exercise: Safe Exercise, Warm-up, Self-monitoring, Cool-Down, Home Exercise > 30 min Daily, Sitting Time <3 hours/daily - Outcomes & Goals Outcomes/Goals: Demonstrates correct Warm-up/exercise Cool-Down (S3) if = 2.5 METs, Verbalizes symptoms of exercise intolerance by Session 3 (S3), Demonstrate safe equipment use (S3) & follows exercise prescrition (6), Other: See below - Intervention & Plan Plan/Intervention: Instruct warm-up & cool-down if exercising at > 2 METs, Instruct on symptoms of exercise intolerance & actions to take, Instruct & monitor on saf, Assess intial functional capacity & safety risk, Other See below - 30-day Reassessments 30 day Reassessments:: Progressing Nutrition - Initial Assessment Nutrition - 30-Day Assessment Nutrition - 60-Day Assessment Nutrition - 90-Day Assessment - Program Goals Nutrition Program Goals: LDL <100 optimal. 100 - 129 Near optimal. 130 - 159 Borderline High. 160 - 189 High. Total Cholesterol <200 desirable. 200 - 239 Borderline High. >/= 240 High. HDL < 40 Low >/=60 High. Triglycerides <150 desirable. <199 optimal. VlDL 5 - 40. HgbA1C <7%. BMI <25 Patient has diagnosis of Hyperlipidemia (ICD E78)?: Yes - Visit Date of Assessment:: 02/09/22 Session #:: 31 - Cholesterol/Lipids Determine presence & major risk factors that modify LDL goal: Hypertension or hypertensive medication, Low HDL cholesterol <40 mg/dL*, Family history of premature CHD in Male < 55 years: female <65 yearsFa, Age men > 45 years; women >/= 55 years Outcomes/Goals: Pt IDs own risk factors & lifestyle modifications by Session 10, Verbalizes symptoms of angina & response by session 3., Pt independently manages, Other Additional Outcomes/Goals: Intervention/Plan: Advocate for lipid panel cholesterol medication if applicable, Instruct on personal lipid levels & lipid goals/NCEP guidelines, Instruct on cholesterol, Other additional plan/int Referral to dietitian:: Yes - medical nutrition therapy 30-day Reassessments:: Progressing - Diabetes (Other Core Measures) Diabetes Type: 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 E11 Non-Insulin Dependent?: Yes - glucophage Referral to Diabetic Clinic:: Yes Outcomes/Goals:: Able to state symptoms of, Able to state, Able to state, Other additional Intervention/Plan:: Instruct on, Refer to, Instruct on, Other - Weight Mgt (Other Care) Height: 6 ft 3.9 in Weight:: 115.439 kg BMI: 31.0 Diagnosis Overweight/Obesity BMI> 30% ICD-10 E66: Yes Diagnosis High BMI/Morbid Obesity BMI> 35% ICD-10 Z68: No Outcomes/Goals: Pt sets, maintains & shows weight loss goal & trend during rehab, Other additional outcomes/goals Intervention/Plan: Instruct on ideal BMI & set weight loss goal w/patient, Assist pt to ID & incorporate diet changes for weight loss by S9, Refer to Structured Weight Loss program as appropriate, Encourage goal of using 250-300dcal per session for weight loss, Other additional plan/interventions 30 day Reassessments:: Progressing - Healthy Eating Habits Will attend diet classes:: Yes Outcomes/Goals:: Consume diet rich in vegs,fruits,whole grain/high fiber,fish,lean meat, Limit sat/trans fats,cholesterol & added salts & sugars, Other additional outcome/goals: Intervention/Plan:: Assess current eating habits, Other Additional plan/interventions 30-day Reassessments:: Progressing - Education Gave educational materials for:: Signs & symptoms of hypoglycemia, Signs & symptoms of hyperglycemia, Relate diabetes to coronary artery disease, Healthy eating Nutrition - Final Assessment Medical - Initial Assessment Medical- 30-Day Assessment Medical- 60-Day Assessment Medical- 90-Day Assessment - Visit Date of Eval: 02/09/22 Session #:: 31 - Medication Compliance Preventative Medication(s):: Aspirin, [place] inhibitor, Clopidogrel/P2Y12 inhibit, Statin/lipid, Beta jaylen H/O mental health issues: depression, anxiety, or addiction?: No Doesn?t believe in the benefits of treatment?: No Believes medications are unnecessary or harmful?: No Has a concern about medication side effects?: No Expresses concern over the cost of medications?: No Outcomes/Goals: Verbalizes medications,desired effect & common side effects @ DC, Pt self-reports following medication regimen, Keeps card in wallet w/medications listed by DC, Other additional outcome/goals: Interventions/plans: Instruct on medication effects & side effects, Review medication list w/patient every two weeks, Instruct importance of taking meds as ordered & assist problem solving, Other additional 30-day Reassessments:: Progressing - Tobacco Use Tobacco Use: Non-smoker Do you use smokeless tobacco?: No 30-day Reassessments:: Progressing - Hypertension Hypertension Diagnosis:: Hypertension ICD-10 I10 Resting Blood Pressure:: 136/80 Citizen [place] [employer] Hypertension Guidelines: Citizen [place] [employer] Hypertension Guidelines. Normal BP Less than 120/80. Elevated BP 120/80. Hypertension Stage 1: BP 130-139/80-89. Hypertesnion Stage 2: BP 140 or higher/90 or higher. Hypertension Crisis: BP higher than 180/120 Peak Exercise Blood Pressure:: 150/80 Outcomes/Goals: Able to verbalize/achieve optimal blood pressure <130/80, Incorporates diet changes & exercise for blood pressure control by DC, Other additional outcomes/goals Interventions/plan: Instruct on optimal blood pressure, hypertension & medications, Instruct on effects of sodium, alcohol, stress, exercise &hypertension, Other additional plan/interventions 30 day Reassessments:: Progressing - Tobacco Cessation Referral Smoking Cessation Referral:: No Individual Education/Counseling:: No Education Schedule Given:: Yes Medical - Final Assessment Psychosocial - Initial Assess Psychosocial - 30-Day Assess Psychosocial - 60-Day Assess Psychosocial - 90-Day Assess - VIsit Date of Eval: 02/09/22 Session #:: 31 History of previous Mental disease:: No - Outcomes/Goals: See list Psychosocial Outcomes/Goals:: ID's personal stressors & 2 strategies to manage stress by discharge, Other Additional outcome/goals: - Intervention/Plan: See List Interventions/Plan:: Assess stressors,coping strategies & signs of derpression on admission, Instruct/assist pt to develop coping & personal stress Mgt strategies, Refer to Behavioral Health if appropriate, Refer to Physician if appropriate, Instruct patient to recognize signs & symptoms of depression, Instruct patient to recog, Other additional plan/intervention - 30-day Reassessments: 30 day Reassessments:: Progressing Psychosocial - Final Assessmen Patient Health Questionnaire 90-Day Re-eval Assessment 1. Little interest or pleasure in doing things: Several days 2. Feeling down, depressed, or hopeless: Several days 3. Trouble falling or staying asleep, or sleeping too much: Not at all 4. Feeling tired or having little energy: Not at all 5. Poor appetite or overeating: Several days 6. Feeling bad about yourself -- or that you are a failure or have let yourself or your family down: Not at all 7. Trouble concentrating on things, such as reading the newspaper or watching television: Several days 8. Moving or speaking so slowly that other people could have noticed. Or the opposite - being so fidgety or restless that you have been moving around a lot more than usual: Not at all 9. Thoughts that you would be better off , or of hurting yourself in some way: Not at all How difficult have these problems made it for you to do your work, take care of things at home, or get along with other people?: Somewhat difficult Total Score: 4 Self-Efficacy 90-Day Re-eval Assessment We would like to know how confident you are in doing certain activities. Please select your confidence level for:: Select your confidence level for the following using the scale 1-10 where 1 is not at all confident and 10 is totally confident. Your score is the average of all 6 responses. Fatigue: How confident are you that you can keep the fatigue caused by your disease from interfering with the things you want to do? Select Number: 5 Physical Discomfort or Pain: How confident are you that you can keep the physical discomfort or pain of your disease from interfering with the things you want to do? Emotional Distress: How confident are you that you can keep the emotional distress caused by your disease from interfering with the things you want to do? Other Symptoms or Health Problems: How confident are you that you can keep other symptoms or health problems from interfering with the things you want to do? Select Number: 7 Different Tasks and Activities: How confident are you that you can do the different tasks and activities needed to manage your health condition so as to reduce your need to see a doctor? Select Number: 8 Medication: How confident are you that you can do things other than just taking medication to reduce how much your illness affects your everyday life? Select Number: 7 Nutrition Survey
[2022-02-09 13:40] VITALS: BP 136/80; BP 150/80; BMI 31.0
== END 2022-02-26 23:59 ==
LOC: CR 09:30
PROVIDERS: PCP Family Medicine Geriatric Medicine
DX: I25.2 Old myocardial infarction (principal); I25.10 Atherosclerotic heart disease of native coronary artery without angina pectoris
CPT/HCPCS: 93798

== ENCOUNTER → 2022-12-22 | Outpatient (CLI) | payer OTHER, SELFPAY ==
[2022-02-09 13:40] VITALS: BMI 31.0
== END | disposition home or self-care (01) ==
PROVIDERS: PCP Family Medicine Geriatric Medicine; Visit Provider Podiatrist
DX: L97.512 Non-pressure chronic ulcer of other part of right foot with fat layer exposed (principal)
CPT/HCPCS: 87070; 87077; 87186; 87205

== ENCOUNTER 2025-03-20 10:15 | Emergency (ER) | payer OTHER, SELFPAY ==
[2022-02-09 13:40] VITALS: BMI 31.0
[2025-03-20] VITALS (17 sets, daily range): BP systolic 124–153; BP diastolic 76–116; PULSE 56–72; RESP 15–34; TEMP 36.4–37.1; O2SAT 95–98
--- NOTE | 2025-03-20 10:22 | ED.RN ---
Respiratory called for EKG
--- NOTE | 2025-03-20 10:40 | ED.VIS.DYS ---
HPI History of Present Illness Chief Complaint: Shortness of Breath Informant: patient Onset/Context/Timing Onset: Weeks (2-3) Context: gradual Timing: Continuous Quality: Positive for Dyspnea on exertion Worsened by: Exertion Relieved by: Rest Associated Symptoms cough and white sputum; Negative for rhinorrhea, post nasal drip, ear pain, fever, sore throat, chills, sweats, clear sputum, yellow sputum or green sputum Narrative Narrative: Patient presents with shortness of breath that has been getting worse over the past 2 to 3 weeks. Patient states his breathing is worse with any exertion. Patient states it has been constant over the past 2 to 3 weeks. Patient states his breathing is better with rest. Patient states he is coughing up some white sputum. Patient denies any fevers or chills. Patient states he feels congested in his chest. Patient also states that he was told he was in atrial fibrillation. PE Risk Factors: Negative for Cancer, OCP + Smoking + > 35, Prior DVT or PE, Recent immobilization, Recent surgery or Recent travel [facility] Medical History (Updated 03/20/25 @ 16:[address] Kwabena Brown, DO) Pacemaker Coronary artery disease A-fib Home Medications ?Medication ?Instructions ?Recorded ?Last Taken ?Type amiodarone 200 mg tablet 200 mg PO DAILY 06/28/20 03/19/25 History atorvastatin 20 mg tablet 20 mg PO DAILY 06/28/20 03/20/25 History furosemide 40 mg tablet 40 mg PO DAILY PRN HEART FAILURE 06/28/20 03/09/25 History warfarin 2 mg tablet 4 mg PO DAILY 06/28/20 03/19/25 History clopidogrel 75 mg tablet 75 mg PO DAILY 11/12/21 03/20/25 History carvedilol 12.5 mg tablet 12.5 mg PO BID 03/20/25 03/19/25 History empagliflozin 10 mg tablet 10 mg PO DAILY 03/20/25 03/20/25 History (Jardiance) glimepiride 2 mg tablet 2 mg PO DAILY 03/20/25 03/20/25 History levothyroxine 88 mcg tablet 88 mcg PO DAILY 03/20/25 03/20/25 History metformin 1,000 mg tablet 1,000 mg PO BID 03/20/25 03/20/25 History sacubitril 97 mg-valsartan 103 mg 1 tab PO BID 03/20/25 03/20/25 History tablet (Entresto) spironolactone 25 mg tablet 25 mg PO DAILY 03/20/25 03/19/25 History Allergy/AdvReac Type Severity Reaction Status Date / Time bee venom protein (honey bee) Allergy Anaphylaxis Verified 03/20/25 10:20 perflutren (From ReadyPulse) Allergy PT UNSURE Verified 03/20/25 10:20 OF REACTION Surgical History (Updated 03/20/25 @ 10:[address] Kwabena Brown DO) Hx of CABG Social History Smoking Status: Former smoker ROS ROS ED Constitutional Constitutional ED: Denies chills or fever(s) Eyes Eyes: Denies blurry vision or change in vision ENT ENT ED: Denies rhinorrhea or sore throat Cardiovascular Cardiovascular: Reports chest pain; Denies palpitations Respiratory/Chest Respiratory/Chest: Reports cough and dyspnea Gastrointestinal Gastrointestinal: Denies nausea or vomiting Genitourinary Genitourinary ED: Denies dysuria or hematuria Musculoskeletal Musculoskeletal: Denies back pain or neck pain Integumentary Denies abscess or rash Neurologic Neurologic: Denies headache(s) or weakness Allergic/Immunologic Allergic/Immunologic ED: Denies mouth swelling or urticaria EXAM Physical Exam Const Vital Signs: 03/20/25 10:16 03/20/25 10:16 03/20/25 10:42 Temperature 97.5 F L Temperature Source Oral Pulse Rate 68 Respiratory Rate 20 H Respiratory Effort Short of Breath Respiratory Depth Normal Respiratory Pattern Normal Blood Pressure 153/87 H Blood Pressure Mean 109 Pulse Ox 98 Oxygen Delivery Method Room Air Room Air Room Air 03/20/25 10:50 03/20/25 11:16 03/20/25 12:10 Temperature Temperature Source Pulse Rate 60 60 62 Respiratory Rate 18 18 18 Respiratory Effort Respiratory Depth Respiratory Pattern Normal Blood Pressure 129/77 H 125/86 H Blood Pressure Mean 94 99 Pulse Ox 98 95 Oxygen Delivery Method Room Air Room Air 03/20/25 13:00 03/20/25 14:00 03/20/25 14:45 Temperature Temperature Source Pulse Rate 63 72 60 Respiratory Rate 19 H 27 H 17 Respiratory Effort Respiratory Depth Respiratory Pattern Blood Pressure 130/76 H 124/86 H 138/78 H Blood Pressure Mean 93 96 98 Pulse Ox 95 Oxygen Delivery Method 03/20/25 15:00 03/20/25 15:09 03/20/25 15:15 Temperature Temperature Source Pulse Rate 60 62 62 Respiratory Rate 17 15 29 H Respiratory Effort Respiratory Depth Respiratory Pattern Blood Pressure 138/78 H Blood Pressure Mean 98 Pulse Ox 95 Oxygen Delivery Method Room Air 03/20/25 15:30 03/20/25 15:45 03/20/25 16:00 Temperature Temperature Source Pulse Rate 57 L 60 Respiratory Rate 18 32 H Respiratory Effort Respiratory Depth Respiratory Pattern Blood Pressure 147/90 H 135/78 H Blood Pressure Mean 107 96 Pulse Ox Oxygen Delivery Method 03/20/25 16:00 03/20/25 16:20 03/20/25 16:30 Temperature Temperature Source Pulse Rate 56 L 65 Respiratory Rate 30 H Respiratory Effort Respiratory Depth Respiratory Pattern Blood Pressure 135/78 H 145/116 H Blood Pressure Mean 96 125 Pulse Ox 95 Oxygen Delivery Method Room Air Positive well nourished and well developed General Appearance ED: well developed and NAD HEENT Reports moist mucous membranes atraumatic Neck supple and no JVD Resp normal respiratory effort Auscultation: wheezes expiratory wheezes and throughout Cardio regular rate and regular rhythm GI non-tender and non-distended Palpation: soft Neuro oriented x3, CN's II-XII intact bilaterally and no sensory deficits noted [place] Coma Scale: document GCS findings Spontaneous Obeys Commands Oriented 15 Sensorium / Orientation: alert Speech: speech normal Motor Exam: strength 5/5 throughout Psych mental status grossly normal MDM MDM MDM Narrative Medical decision making narrative: Differential diagnosis includes cardiac dysrhythmia, cardiac ischemia, pneumonia, pneumothorax, urinary tract infection, coagulopathy, electrolyte abnormality, and dehydration. Patient has no PE risk factors. EKG will be obtained to assess for cardiac dysrhythmia and cardiac ischemia. Chest x-ray will be obtained to assess for pneumonia and pneumothorax. CBC will be obtained to assess for leukocytosis and anemia. Basic metabolic profile will be obtained to assess for electrolyte abnormality and renal function. High-sensitivity troponin will be obtained to assess for cardiac ischemia. 2-hour repeat high-sensitivity troponin to be obtained to assess for ongoing cardiac ischemia. PT was INR and PTT will be obtained to assess for coagulopathy. Urinalysis will be obtained to assess for urinary tract infection. History & Record Review Additional record(s) reviewed:: Prior labs Lab Data Attestation: I reviewed the patient's lab results. Lab results narrative: CBC was reviewed. There is a mild anemia with a hemoglobin of 10.7 and hematocrit of 33.8. PT with INR and PTT were reviewed. Pro time was 33.5 and INR 3.2. PTT was 53.3. Basic metabolic profile was reviewed. Glucose was mildly elevated 144. The remainder is within normal limits. BUN was normal. Anion gap was normal. Initial high-sensitivity troponin was reviewed and was normal at 13. 2-hour repeat high-sensitivity troponin was reviewed and was normal at 9. Urinalysis was reviewed. There is no evidence of urinary tract infection or hematuria. 4-hour repeat high-sensitivity troponin was reviewed and was normal at 14. BNP was reviewed and was elevated 2837. Labs: Laboratory Results - last 24 hr 03/20/25 03/20/25 03/20/25 10:44 12:25 12:50 WBC 8.3 RBC 4.16 L Hgb 10.7 L Hct 33.8 L MCV 81.3 MCH 25.7 L MCHC 31.7 L RDW Std Deviation 48.3 H RDW Coeff of Ciera 16.6 H Plt Count 278 MPV 12.1 H Immature Gran % (Auto) 0.500 Neut % (Auto) 79.9 H Lymph % (Auto) 13.6 L Becker % (Auto) 5.3 Eos % (Auto) 0.2 Baso % (Auto) 0.5 Absolute Neuts (auto) 6.7 Absolute Lymphs (auto) 1.13 Nucleated RBC % 0 PT 33.5 H INR 3.2 APTT 53.3 H Sodium 136 Potassium 4.6 Chloride 103 Carbon Dioxide 20.7 L Anion Gap 12 BUN 19 Creatinine 0.93 Est GFR (MDRD) Non-Af 85 BUN/Creatinine Ratio 19.9 Glucose 144 H Calcium 9.0 Troponin T High Sens 13 Troponin T Hi Sens 2 Hr 9 Troponin T Hi Sens 4Hr NT pro BNP II 2837 H Urine Color Yellow Urine Clarity Clear Urine pH 5.0 Ur Specific Butler 1.020 Urine Protein 15 H Urine Glucose (UA) 1000 H Urine Ketones Negative Urine Occult Blood Negative Urine Nitrite Negative Urine Bilirubin Negative Urine Urobilinogen Normal Ur Leukocyte Esterase Negative Urine RBC 0 SEEN Urine WBC 0-5 SEEN Ur Squamous Epith Cells 0-5 SEEN Urine Bacteria 0 SEEN Urine Mucus 0 SEEN 03/20/25 15:00 WBC RBC Hgb Hct MCV MCH MCHC RDW Std Deviation RDW Coeff of Ciera Plt Count MPV Immature Gran % (Auto) Neut % (Auto) Lymph % (Auto) Becker % (Auto) Eos % (Auto) Baso % (Auto) Absolute Neuts (auto) Absolute Lymphs (auto) Nucleated RBC % PT INR APTT Sodium Potassium Chloride Carbon Dioxide Anion Gap BUN Creatinine Est GFR (MDRD) Non-Af BUN/Creatinine Ratio Glucose Calcium Troponin T High Sens Troponin T Hi Sens 2 Hr Troponin T Hi Sens 4Hr 14 NT pro BNP II Urine Color Urine Clarity Urine pH Ur Specific Butler Urine Protein Urine Glucose (UA) Urine Ketones Urine Occult Blood Urine Nitrite Urine Bilirubin Urine Urobilinogen Ur Leukocyte Esterase Urine RBC Urine WBC Ur Squamous Epith Cells Urine Bacteria Urine Mucus Radiography Chest X-Ray - ED: 2 View, Read by ED Physician, Read by Radiologist, Cardiomegaly and - (Mild congestion) Diagnostic Testing: Clinical Impression(s) from Imaging Studies Chest X-Ray 03/20/25 11:00 IMPRESSION: Cardiomegaly with mild congestion. Reading Location: [facility] and lateral chest x-ray was obtained. There are 2 views. On my independent interpretation, lung sandoval show mild congestion. There is cardiomegaly noted. Bony thorax is normal. Radiologist also interpreted the x-ray and agrees. Because the patient became dyspneic with exertion, CTA of the chest was obtained to assess for pulmonary embolism. Patient was signed out to the oncoming physician pending CTA results. EKG Initial EKG: Attestation: I personally reviewed and interpreted this EKG as follows: Interpretation: Paced (74) and LBBB Comments: EKG was obtained. On my independent interpretation, it shows a ventricular paced rhythm with a rate of 74. QRS interval was prolonged at 220 ms. QTc interval was 568 ms. There is left axis deviation at -48. There is a left bundle branch block pattern noted. There are no acute ST or T wave changes noted. Prior EKG tracings: available for review Prior: Unchanged (06/28/2020) Treatment and Re-Evaluation :: Patient was given a DuoNeb aerosol here. Patient has slight improvement with this. Patient was ambulated with pulse oximeter. Patient's pulse oximeter remained above 94% while ambulating however he became very short of breath. Because of this, CTA of the chest and BNP was added on. Patient was given a dose of Lasix. Patient was instructed to take his normal Lasix today when he gets home. Patient was instructed to take 2 doses of Lasix tomorrow. Patient was instructed to resume his normal Lasix after that. Since the patient is not hypoxic, I do not feel the patient needs to be admitted to the hospital. Patient is agreeable with this. Patient was instructed to return if worse in any way. Patient understood and was agreeable with the plan. All questions were answered. Discharge Plan Triage Chief Complaint: Shortness of Breath ED Provider: Kwabena Brown Dx/Rx/DC Orders Clinical Impression: Congestive heart failure (CHF), Essential hypertension Instructions: ED Heart Failure, Congestive (CHF) Prescriptions: No Action furosemide 40 MG tablet 40 mg PO DAILY PRN (Reason: HEART FAILURE) Rx Instructions: TAKES WEEKLY AND PRN, MAX Q4D atorvastatin 20 MG tablet 20 mg PO DAILY amiodarone 200 MG tablet 200 mg PO DAILY warfarin 2 MG tablet 4 mg PO DAILY Rx Instructions: pt states takes 1 to 2 tablets daily (2mg-4mg) based on inr clopidogrel 75 mg Tablet 75 mg PO DAILY carvedilol 12.5 mg tablet 12.5 mg PO BID spironolactone 25 mg tablet 25 mg PO DAILY glimepiride 2 mg tablet 2 mg PO DAILY levothyroxine 88 mcg tablet 88 mcg PO DAILY metformin 1,000 mg tablet 1,000 mg PO BID Jardiance 10 mg tablet 10 mg PO DAILY sacubitril-valsartan [Entresto] 97-103 mg tablet 1 tab PO BID Primary Care Provider: Mary Byrne Referrals: Mary Byrne MD [Primary Care Provider] - 3-5 Days Alfredito Rice MD [Non-Staff] - 3-5 Days Activity Restrictions/Additional Instructions: Take your normal Lasix today. Take 2 doses of Lasix tomorrow. Then resume your normal dose of Lasix. Print Language: Kyrgyz Disposition Disposition: Home, Self Care
[2025-03-20] MEDS: Ipratropium/Albuterol Sulfate 3 ML AMPUL.NEB INHALATION (10:50)
[2025-03-20 10:54] LABS: Absolute Lymphocyte Count 1.13 X10^3/uL (0.83-4.51); Absolute Neutrophil Count 6.7 X10^3/uL (2.0-7.7); Basophil# 0.04 X10^3/uL; Basophil% 0.5 % (0-1); Eosinophil# 0.02 X10^3/uL; Eosinophils% 0.2 % (0-5); Hematocrit 33.8 % (40-54); Hemoglobin 10.7 g/dL (13.0-16.5); Lymphocyte # 1.13 X10^3/ul (0.83-4.51); Lymphocyte % 13.6 % (19-41); Mean Corp Hgb Conc 31.7 g/dL (32-36); Mean Corpuscular Hgb 25.7 pg (27.0-32.0); Mean Corpuscular Volume 81.3 fL (80-94); Mean Platelet Vol. 12.1 fl (6.2-12.0); Monocyte# 0.44 X10^3/uL; Monocyte% 5.3 % (0-10); NRBC Flagged by Analyzer 0 % (0-5); Neutrophil # 6.65 X10^3/uL (2.7-7.7); Neutrophil % 79.9 % (47-70); Platelet Count 278 K/mm3 (150-450); RBC Distribution Width CV 16.6 % (11.6-14.6); RBC Distribution Width SD 48.3 fl (35.1-43.9); Red Blood Count 4.16 M/mm3 (4.6-6.2); White Blood Count 8.3 K/mm3 (4.4-11.0)
--- NOTE | 2025-03-20 11:00 | RAD_ITS ---
EXAM: XR Chest, 2 Views CLINICAL INDICATION: SHORTNESS OF BREATH TECHNIQUE: Frontal and lateral views of the chest. COMPARISON: No relevant prior studies available. FINDINGS: LUNGS AND PLEURAL SPACES: See below. HEART: Cardiomegaly with mild congestion. MEDIASTINUM: Unremarkable. Normal mediastinal contour. BONES/JOINTS: Unremarkable. No acute fracture. TUBES, LINES AND DEVICES: Left-sided cardiac pacemaker. RAD/Chest PA and Lateral IMPRESSION: Cardiomegaly with mild congestion. Reading Location: [facility]
[2025-03-20 11:02] LABS: International Normalized Ratio 3.2; Prothrombin Time (Protime)PT. 33.5 SECONDS (11.7-14.9)
[2025-03-20 11:03] LABS: Partial Thromboplast Time 53.3 Seconds (24.1-36.2)
[2025-03-20 11:19] LABS: Anion Gap 12 (5-15); BUN 19 mg/dL (4-19); BUN/Creat Ratio 19.9 RATIO (10-20); Carbon Dioxide 20.7 mmol/L (21.0-32.0); Chloride 103 mmol/L (98-108); Creatinine, Serum 0.93 mg/dL (0.70-1.20); EST Glomerular Filtration Rate 85 (>60); Glucose 144 mg/dL (70-99); Potassium 4.6 mmol/L (3.3-5.1); Sodium Level 136 mmol/L (133-145)
[2025-03-20 11:45] LABS: Troponin T High Sensitivity 13 ng/L (<=22)
[2025-03-20 12:49] LABS: Bacteria 0 SEEN /hpf (None Seen); Mucous, Urine 0 SEEN /hpf (<or=2+); Red Blood Cells-Urine 0 SEEN /hpf (0-5)
[2025-03-20 14:09] LABS: Color, Urine Yellow (Yellow); Glucose, Dipstick 1000 mg/dl (Normal); Ketone-Dipstick Negative (Negative); Leukocyte Esterase-Dipstick Negative /ul (Negative); Nitrite-Dipstick Negative (Negative); Occult Blood-Urine Negative /ul (Negative); Protein-Dipstick 15 mg/dl (Negative); Urine Bilirubin Dipstick Negative (Negative); Urine Clarity Clear (Clear); Urine Urobilinogen Normal (Normal)
[2025-03-20 14:11] LABS: Troponin T High Sens 2 HR 9 ng/L (<=22)
[2025-03-20 14:34] LABS: Squamous Epithelial Cells - UA 0-5 SEEN /hpf (0-5); White Blood Cells 0-5 SEEN /hpf (0-5)
[2025-03-20 16:03] LABS: Troponin T High Sens 4 HR 14 ng/L (<=22)
--- NOTE | 2025-03-20 16:14 | CT_ITS ---
PROCEDURE: CTA CHEST W/WO CONTRAST 03/20/2025 REASON FOR EXAM: DYSPNEA ON EXERTION TECHNIQUE: CTA imaging of the chest with intravenous contrast. Coronal and Sagittal reconstruction series were provided. 3D, 3D post processing, 3D reconstructions, Maximum intensity projection (MIPs) Volume rendering and Shaded surface rendering was provided. One or more dose reduction techniques were used (e.g., Automated exposure control, adjustment of the mA and/or kV according to patient size, use of iterative reconstruction technique). COMPARISON: None FINDINGS: Moderate cardiomegaly. Three-vessel coronary artery calcifications. 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 No discrete associated thrombus. Aneurysmal dilation of the ascending thoracic aorta measuring 5 cm. Normal caliber pulmonary arteries without filling defects. No suspicious adenopathy. Mild contrast reflux into the hepatic veins. No acute findings in the upper abdomen. Central airways are patent. Small bilateral pleural effusions. Mild bibasilar and biapical septal thickening, likely mild interstitial edema. No patchy infiltrates or pneumothorax. No suspicious pulmonary mass. No acute osseous abnormality. Chronic right rib fractures. Degenerative changes of the spine. CT/CTA Chest W/WO Contrast IMPRESSION: 1. Negative for pulmonary embolism. 2. Small bilateral pleural effusions with mild basilar and apical septal edema. No focal infiltrates. 3. Cardiomegaly and coronary artery disease. 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 4. Ascending thoracic aortic aneurysm measuring 5 cm. Reading Location: [facility]
[2025-03-20 16:21] LABS: Pro- Brain NATRIURETIC PEPTIDE 2837 pg/mL (<=1800)
[2025-03-20] MEDS: Furosemide 40 MG/4 ML Vial IV (16:30)
== END 2025-03-20 17:48 | disposition home or self-care (01) ==
PROVIDERS: Emergency Provider Emergency Medicine; PCP Internal Medicine; Visit Provider Emergency Medicine
DX: R06.02 Shortness of breath (principal); I11.0 Hypertensive heart disease with heart failure; I50.9 Heart failure, unspecified; I48.91 Unspecified atrial fibrillation; I25.10 Atherosclerotic heart disease of native coronary artery without angina pectoris; Z87.891 Personal history of nicotine dependence; Z95.0 Presence of cardiac pacemaker; Z79.899 Other long term (current) drug therapy; Z79.01 Long term (current) use of anticoagulants; Z79.02 Long term (current) use of antithrombotics/antiplatelets
CPT/HCPCS: 71046; 71275; 80048; 81001; 83880; 84484; 85025; 85610; 85730; 93005; 94640; 96374; 99284; Q9967; A4216; J1940